=== PATIENT | female | born 1945 | race Caucasian/White ===

== ENCOUNTER 2020-01-16 12:54 | Outpatient (REF) | payer MEDICARE, SELFPAY ==
--- NOTE | 2020-01-17 17:01 | MHC.AU.P13 ---
Adult Audiological Evaluation Date of Visit: 01/16/20 Reason for Appointment: Hearing re-evaluation to monitor hearing loss. Patient denies any significant changes to her hearing or medical history. Does patient feel they have a hearing loss?: Yes If Yes, Which Ear?: Both Ears Has hearing been tested previously?: Yes Previous Hearing Test Results: [facility], 03/16/18- Normal low-frequency hearing, steeply sloping to a mild to severe SNHL bilaterally. Hearing Instrument History- Right Ear: Rn Intern: bVisual Model: FIT [employer]he[employer] M50-312 Serial Number: [id number] Battery Size: 312 Warranty: 08/14/2021 Hearing Instrument History- Left Ear: Rn Intern: bVisual Model: FIT [employer]he[employer]oda M50-312 Serial Number: [id number] Battery Size: 312 Warranty: 08/14/2021 Otoscopy: Right Ear: Unremarkable Left Ear: Unremarkable Tympanometry: Right Ear: Normal Middle Ear System (Type A) Left Ear: Normal Middle Ear System (Type A) Hearing Evaluation: Transducer(s) Used: Insert Earphones, Bone Conduction Method: Conventional Audiometry Stimuli Used: Pure Tones Right Ear: Description of Hearing: Mild hearing loss at 250 Hz, rising to normal hearing from 500-1000 Hz, steeply sloping to a mild to profound sensorineural hearing loss from 9521-8804 Hz. Left Ear: Description of Hearing: Mild hearing loss at 250 Hz, rising to normal hearing at 500 Hz, steeply sloping to a mild to severe sensorineural hearing loss from 6752-9917 Hz. Speech Recognition Threshold (SRT): Method Used: Monitored Live Voice Stimuli Used: Spondee Words Right Ear: 5 dBHL Left Ear: 5 dBHL Word Discrimination: Method: Recorded Lists Word Lists Used: NU-6 Right Ear: 76% at 70 dBHL Left Ear: 84% at 70 dBHL Most Comfortable Level (MCL): Right Ear: 70 dBHL Left Ear: 70 dBHL Comparison: Compared to the most recent evaluation: Thresholds have decreased bilaterally. Recommendations: Recommendations: Audiological re-evaluation in one year. Recommendations (Other): Hearing aid maintenance and adjustments performed today. Diagnosis: Primary Diagnosis: H90.3 Bilateral Sensorineural Hearing Loss Services Performed: Services Performed: Comprehensive Audiological Evaluation (CPT 93156) Tympanometry (CPT 35939) Signature: Provider: Manda Ceron, CCC-A
== END 2020-01-16 12:55 | disposition home or self-care (01) ==
LOC: HO.SH 12:54
PROVIDERS: Visit Provider Nurse Practitioner Family
DX: H90.3 Sensorineural hearing loss, bilateral (principal)
CPT/HCPCS: 92557; 92567

== ENCOUNTER 2020-01-23 11:28 | Outpatient (REF) | payer SELFPAY | END 2020-01-23 11:29 | disposition home or self-care (01) | LOC: HO.HAP 11:28 | PROVIDERS: PCP Nurse Practitioner Family; Referring Provider Nurse Practitioner Family; Visit Provider Nurse Practitioner Family | DX: Z13.89 Encounter for screening for other disorder (principal) | CPT/HCPCS: 92700 ==

== ENCOUNTER 2022-12-16 13:25 | Outpatient (REF) | payer MEDICARE, SELFPAY | END 2022-12-16 13:26 | disposition home or self-care (01) | LOC: HO.SH 13:25 | PROVIDERS: Visit Provider Physician Assistant | DX: Z01.118 Encounter for examination of ears and hearing with other abnormal findings (principal); H90.3 Sensorineural hearing loss, bilateral | CPT/HCPCS: 92557 ==

== ENCOUNTER 2024-10-16 09:01 | Day surgery (SDC) | payer MEDICARE, SELFPAY ==
--- OUTSIDE RECORDS SUMMARY | 2024-09-01 11:08 | XMS_ITS | Data Portability ---
Author Organization [facility], [facility] Address [address] [place] [address] Care Team Providers Care Food Tester Name Role Phone WAQAS KITCHEN Phys. Med. & Rehab YNES CAICEDO Orthopedic Surgeon ENDY HUA Hygiene Assistant VANE SPIVEY Machine Shop Apprentice IRENA OLMSTEAD Pump Machine Operator KOLTON PAREKH General Surgeon WAQAS WOLFE Neurologist LANDON CHAVEZ Primary Care Provider Assessment Encounter Date Assessment Date Assessment LastModified by Organization Details LastModified Time 09/09/2022 09/09/2022 We completed your Medicare Wellness exam today. This was an opportunity to assess your overall well being including your ability to care for yourself, your mobility, memory, mental health, as well as your safety. With advancing age, it is important to assign someone in your life as your Health Care Proxy (HCP). This person should know what is important to you and what your wishes are for medical procedures if you cannot communicate your wishes yourself (severe illness, unconsciousness) . We discussed having a completed Health Care Proxy form today. In addition, today we started a conversation about your End of Life wishes. These conversations will continue over the years. Please consider reading the book, Being Mortal by Cory Muniz to help frame future conversations. We discussed the purpose of a MOLST form (Medical Orders for Life Sustaining Treatment) and completed this form if appropriate per your wishes. Vision and Hearing are senses that are critically important as we age. When impaired, they can contribute to memory loss, falls, and make it harder to drive, talk to family and friends, and engage in the world. Please get your vision checked yearly and your hearing checked when you start to notice hearing loss. We discussed approaches to lowering your risk of heart disease and stroke . Your blood pressure is at goal. Your cholesterol is at goal. We discussed cancer screening you may need as well as vaccines to prevent infections. Colon Cancer : Your risk of colon cancer is average. Due for colorectal screening:not needed due to age. If you are not planning to have a colonoscopy please screen with stool cards yearly. Breast Cancer : Breast Cancer Screening (mammography). Next mammogram due: 2022. Cervical Cancer Screening (pap test). Next pap due: not needed. Influenza Vaccine : Flu shot yearly. Tetanus Vaccine : Every 10 years. Due: 2025. The following vaccines are available from your pharmacy: Pneumonia Vaccine : PCV20: once after age 65. Shingles Vaccine : 2 shots after age 50. Covid Vaccine : Make sure you have received the most up to date covid vaccine. Your personal health goal for the year is: Aim for 30min brisk exercise most days - get your heart rate up! Can do outside walk or indoor video/youtube Heart healthy diet - lots of veggies, fruit, lean meats and fish. Stress management - meditate, find roque, get outside. [email or web address] Not available 09/09/2022 13:19:56 09/20/2023 09/20/2023 We completed your Medicare Wellness exam today. This was an opportunity to assess your overall well being including your ability to care for yourself, your mobility, memory, mental health, as well as your safety. Vision and Hearing are senses that are critically important as we age. When impaired, they can contribute to memory loss, falls, and make it harder to drive, talk to family and friends, and engage in the world. Please get your vision checked yearly and your hearing checked when you start to notice hearing loss. We discussed approaches to lowering your risk of heart disease and stroke . Your blood pressure is at goal. Your cholesterol is at goal. We discussed cancer screening you may need as well as vaccines to prevent infections. Colon Cancer : Your risk of colon cancer is average. Due for colorectal screening:not needed due to age. If you are not planning to have a colonoscopy please screen with stool cards yearly. Breast Cancer : Breast Cancer Screening (mammography). Next mammogram due: 2023. Cervical Cancer Screening (pap test). Next pap due: not needed. Influenza Vaccine : Flu shot yearly. Tetanus Vaccine : Every 10 years. Due: 2025. The following vaccines are available from your pharmacy: Pneumonia Vaccine : PCV20: once after age 65. Shingles Vaccine : 2 shots after age 50. Covid Vaccine : Make sure you have received the most up to date covid vaccine. Your personal health goal for the year is: [email or web address] Not available 09/20/2023 12:23:06 Plan of Treatment Reminders Order Date Submit Date Provider Last Modified By Organization Details Last Modified Time Details Appointments Wellness Visit 30 2024 11:30A Lazara CHAVEZ DNP Not available Not available Not available Lab vitamin B12, serum 2021 022 [facility], [address] [place] [address], [address], 09/08/2021 16:31:39 TSH, serum or plasma 2021 [address] [facility], [address] [place] [address], [address], 09/04/2021 15:33:08 CBC 2021 022 [facility], [address] [place] [address], [address], 09/04/2021 13:22:[address] referral - polyneuro guadalupe after Covid vaccine? 2020 021 [email or web address] Not available 10/17/2020 12:12:30 Procedures lower extremity nerve conductio n study (PROC) 2020 021 [email or web address] Not available 10/29/2020 15:25:23 Surgeries None recorded. Imaging None recorded. Medication Orders azelastin e 0.05 % eye drops 2023 024 [facility]acy #[id number], [address] [place], [address], 09/29/2023 09:48:11 cetirizin e 10 mg tablet 2023 024 [email or web address] [facility]/Pharmacy #[id number], [address] [place], [address], 09/29/2023 09:39:01 Patient TargetsNo targets recorded. Patient Instructions Encounter Date Encounter Id Patient Instructions Last Modified By Organization Details Last Modified Time 09/04/2021 [id number] advance directives: care instructions Not available 09/04/2021 09:46:33 preventing falls : care instructions Not available 09/04/2021 09:46:33 hearing loss: care instructions Not available 09/04/2021 09:46:33 well visit, over 65: care instructions Not available 09/04/2021 09:46:33 Aim for 30min brisk exercise most days - get your heart rate up! Can do outside walk or indoor video/youtube Heart healthy diet - lots of veggies, fruit, lean meats and fish. Stress management - meditate, find roque, get outside. Not available 09/04/2021 15:41:26 09/09/2022 [id number] advance directives: care instructions Not available 09/09/2022 13:20:33 preventing falls : care instructions Not available 09/09/2022 13:20:33 hearing loss: care instructions Not available 09/09/2022 13:20:33 well visit, over 65: care instructions Not available 09/09/2022 13:20:33 CCM: The provide r and patient discussed the Chronic Care Management program, including the services provided, and any fees associated with them. 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 Referring Physician: Remedios Osman, Family Medicine, Encounter Date: 10/17/2020 Results Created Date Observation Date Name Description Value Unit Range Abnormal Flag Note LastModifiedBy Organization Detail LastModifiedTime 10/11/19 21 10/10/2020 CBC WBC 6.86 K/? ? ?L 3.98-1 0.04 Not Available [address], [address], 10/10/2020 12:45:45 10/11/19 21 10/10/2020 CBC RBC 4.82 M/? ? ?L 3.93-5 .22 Not Available [address], [address], 10/10/2020 12:45:45 10/11/19 21 10/10/2020 CBC HGB 13.5 g/dL 11.2-1 5.7 Not Available [address], [address], 10/10/2020 12:45:45 10/11/19 21 10/10/2020 CBC HCT 41.5 % 34.1-4 4.9 Not Available [address], [address], 10/10/2020 12:45:45 10/11/19 21 10/10/2020 CBC MCV 86.1 fL 79.4-9 4.8 Not Available [address], [address], 10/10/2020 12:45:45 10/11/19 21 10/10/2020 CBC MCH 28.0 pg 25.6-3 2.2 Not Available [address], [address], 10/10/2020 12:45:45 10/11/19 21 10/10/2020 CBC MCHC 32.5 g/dL 32.2-3 5.5 Not Available [address], [address], 10/10/2020 12:45:45 10/11/19 21 10/10/2020 CBC plt 286 K/? ? ?L 182-36 9 Not Available [address] [place], [address], 10/10/2020 12:45:45 10/11/19 21 10/10/2020 CBC MPV 9.6 fL 9.4-12 .3 Not Available [address], [address], 10/10/2020 12:45:45 10/11/19 21 10/10/2020 CBC neut% 57.5 % 34.0-7 1.1 Not Available [address], [address], 10/10/2020 12:45:45 10/11/19 21 10/10/2020 CBC neut# 3.95 1.56-6 .13 Not Available [address], [address], 10/10/2020 12:45:45 10/11/19 21 10/10/2020 CBC lymph % 26.4 % 19.3-5 1.7 Not Available [address], [address], 10/10/2020 12:45:45 10/11/1910/10/2020 CBC lymph # 1.81 K/? ? ?L 1.18-3 .74 Not Available [address], [address], 10/10/2020 12:45:45 10/11/19 21 10/10/2020 CBC mono% 12.0 % 4.7-12 .5 Not Available [address], [address], 10/10/2020 12:45:45 10/11/1910/10/2020 CBC mono# 0.82 0.24-0 .56 high Not Available [address], [address], 10/10/2020 12:45:45 10/11/19 21 10/10/2020 CBC eo% 2.9 % 0.7-5. 8 Not Available [address], [address], 10/10/2020 12:45:45 10/11/19 21 10/10/2020 CBC eo# 0.20 0.04-0 .36 Not Available [address], [address], 10/10/2020 12:45:45 10/11/19 21 10/10/2020 CBC baso% 0.9 % 0.1-1. 2 Not Available [address], [address], 10/10/2020 12:45:45 10/11/19 21 10/10/2020 CBC baso# 0.06 0.00-0 .08 Not Available [address], [address], 10/10/2020 12:45:45 10/11/19 21 10/10/2020 CBC RDW-CV 12.9 % 11.7-1 4.4 Not Available [address], [address], 10/10/2020 12:45:45 10/11/19 21 10/10/2020 CBC Ig% 0.300 % 0.000- 1.500 Ig % >0.5 Indic ates possi ble Left Shift Not Available [address], [address], 10/10/2020 12:45:45 10/11/19 21 10/10/2020 CBC Ig# 0.020 0.000- 0.093 Not Available [address], [address], 10/10/2020 12:45:45 10/11/19 21 10/10/2020 CBC NRBC% 0.0 % 0.0-0. 2 Not Available [address], [address], 10/10/2020 12:45:45 10/11/19 21 10/10/2020 CBC NRBC# 0.000 0.000- 0.012 Not Available [address], [address], 10/10/2020 12:45:45 10/11/19 21 10/10/2020 HGB A1C hemoglobin A1C 5.6 % 4.8-6. 0 Goal: <7% in Patie nts with Diabe jeffery An A1c betwe en 5.7-6 .4% is ident ified as pre-d iabet es and sugge sts risk for progr essio n to diabe jeffery Two a1c value s of 6.5% or highe r is consi stent with a diagn osis of diabe jeffery but may need furth er confi rmati on Not Available [address], [address], 10/10/2020 14:04:23 10/11/19 21 10/10/2020 HGB A1C estimated average glucose 114.0 mg/dL Not Available [address], [address], 10/10/2020 14:04:23 10/11/19 21 10/10/2020 COMP. METAB OLIC PANEL glucose 88 mg/dL 70-100 Not Available [address], [address], 10/10/2020 16:13:51 10/11/19 21 10/10/2020 COMP. METAB OLIC PANEL BUN 11 mg/dL 7-18 Not Available [address], [address], 10/10/2020 16:13:51 10/11/19 21 10/10/2020 COMP. METAB OLIC PANEL creatinine 0.7 mg/dL 0.8-1. 3 low Not Available [address], [address], 10/10/2020 16:13:51 10/11/19 21 10/10/2020 COMP. METAB OLIC PANEL B/C 15.7 ratio Not Available [address], [address], 10/10/2020 16:13:51 10/11/19 21 10/10/2020 COMP. METAB OLIC PANEL GFR -non 90.9 mL/mi n Recom helene d GFR by the Natio nal Kidne y Found ation >60 mL/mi n/1.7 3m2 - Loan l <60 mL/mi n/1.7 3m2 - Chron ic Kidne y Disea se <15 mL/mi n/1.7 3m2 - Kidne y Failu re Not Available [address], [address], 10/10/2020 16:13:51 10/11/19 21 10/10/2020 COMP. METAB OLIC PANEL GFR - if 104.5 mL/mi n For Afric an Ameri can patie nts: Resul ts Multi plied by 1.21 Not Available [address], [address], 10/10/2020 16:13:51 10/11/19 21 10/10/2020 COMP. METAB OLIC PANEL sodium 137 mmol/ L 136-14 5 Not Available [address], [address], 10/10/2020 16:13:51 10/11/19 21 10/10/2020 COMP. METAB OLIC PANEL potassium 4.3 mmol/ L 3.5-5. 1 Not Available [address], [address], 10/10/2020 16:13:51 10/11/19 21 10/10/2020 COMP. METAB OLIC PANEL chloride 99 mmol/ L 96-107 Not Available [address], [address], 10/10/2020 16:13:51 10/11/19 21 10/10/2020 COMP. METAB OLIC PANEL anion gap 9.9 5.0-15 .0 Not Available [address], [address], 10/10/2020 16:13:51 10/11/19 21 10/10/2020 COMP. METAB OLIC PANEL CO2 28 mmol/ L 21-32 Not Available [address], [address], 10/10/2020 16:13:51 10/11/19 21 10/10/2020 COMP. METAB OLIC PANEL calcium 9.4 mg/dL 8.5-10 .3 Not Available [address], [address], 10/10/2020 16:13:51 10/11/19 21 10/10/2020 COMP. METAB OLIC PANEL total protein 7.1 g/dL 6.4-8. 2 Not Available [address], [address], 10/10/2020 16:13:51 10/11/19 21 10/10/2020 COMP. METAB OLIC PANEL albumin 3.8 g/dL 3.4-5. 0 Not Available [address], [address], 10/10/2020 16:13:51 10/11/19 21 10/10/2020 COMP. METAB OLIC PANEL globulin 3.3 g/dL Not Available [address], [address], 10/10/2020 16:13:51 10/11/19 21 10/10/2020 COMP. METAB OLIC PANEL A/G 1.2 ratio 0.8-2. 0 Not Available [address], [address], 10/10/2020 16:13:51 10/11/19 21 10/10/2020 COMP. METAB OLIC PANEL total bilirubin 0.70 mg/dL 0.00-1 .00 Not Available [address], [address], 10/10/2020 16:13:51 10/11/19 21 10/10/2020 COMP. METAB OLIC PANEL AST 19 U/L 0-37 Not Available [address], [address], 10/10/2020 16:13:51 10/11/19 21 10/10/2020 COMP. METAB OLIC PANEL ALT 19 U/L 6-63 Not Available [address], [address], 10/10/2020 16:13:51 10/11/19 21 10/10/2020 COMP. METAB OLIC PANEL alk. phos. 64 U/L 50-136 Not Available [address], [address], 10/10/2020 16:13:51 10/11/19 21 10/11/2020 TSH TSH 3.48 uIU/m L 0.50-6 .00 The Ameri can Colle ge of Endoc rinol ogy and Ameri can Thyro id Assoc iatio n recom mend goal TSH value s betwe en 0.4-4 .0 mIU/m L. Not Available [address], [address], 10/11/2020 10:55:37 10/11/19 21 10/11/2020 MCKINLEY TIN ferritin 76 NG/mL 15-200 Not Available [address], [address], 10/11/2020 10:55:38 10/11/19 21 10/14/2020 PROTE IN, TOTAL AND PROTE IN ELECT CHELSEA PALACIOS URINE creatinine, random urine 53 mg/dL 20-275 normal Not Available [facility] [address], [place], [address], 10/14/2020 11:16:23 10/11/19 21 10/14/2020 PROTE IN, TOTAL AND PROTE IN CHELSEA WHEELER URINE protein/crea tinine ratio 113 mg/g_ creat 21-161 normal Not Available [facility] [place] [facility] [address], [address], 10/14/2020 11:16:23 10/11/19 21 10/14/2020 PROTE IN, TOTAL AND PROTE IN CHELSEA WHEELER URINE protein/crea tinine ratio 0.113 mg/mg _crea t 0.021- 0.161 normal Not Available [facility] [place] [facility] [address], [address], 10/14/2020 11:16:23 10/11/19 21 10/14/2020 PROTE IN, TOTAL AND PROTE IN CHELSEA WHEELER URINE protein, total, random ur 6 mg/dL 5-24 normal Not Available [facility] [place] [facility] [address], [address], 10/14/2020 11:16:23 10/11/19 21 10/14/2020 PROTE IN, TOTAL AND PROTE IN CHELSEA WHEELER URINE albumin 100 % Not Available [facility] [place] [facility] [address], [address], 10/14/2020 11:16:23 10/11/19 21 10/14/2020 PROTE IN, TOTAL AND PROTE IN [facility] CHELSEA PALACIOS URINE [id number] ulins 0 % Not Available [facility] [place] [facility] [address], [address], 10/14/2020 11:16:23 10/11/19 21 10/14/2020 PROTE IN, TOTAL AND PROTE IN CHELSEA WHEELER URINE [id number] ulins 0 % Not Available [facility] [place] [facility] [address], [address], 10/14/2020 11:16:23 10/11/19 21 10/14/2020 PROTE IN, TOTAL AND PROTE IN ELECT CHELSEA PALACIOS URINE beta globulins 0 % Not Available [facility] [place] [facility] [address] [place], [place], [address], 10/14/2020 11:16:23 10/11/19 21 10/14/2020 PROTE IN, TOTAL AND PROTE IN ELECT [facility] CHELSEA JEAN BAPTISTE URINE gamma globulins 0 % Not Available [facility] [place] [facility] [address] [place], [address], 10/14/2020 11:16:23 10/11/19 21 10/14/2020 PROTE IN, TOTAL AND PROTE IN [facility] CHELSEA JEAN BAPTISTE URINE interpretati on Loan Collado rn Not Available [facility] [place] [facility] [address], [place], [address], 10/14/2020 11:16:23 10/11/19 21 10/16/2020 VITAM IN B12 vitamin B12 251 pg/mL 230-10 50 Not Available [address], [address], 10/16/2020 13:42:10 10/11/19 21 10/17/2020 HEPAT ITIS C AB W/REF L TO HCV RNA, QN, PCR hepatitis C antibody REACTI VE non-re active abnormal Not Available [facility] [place] [facility] [address], [place], [address], 10/17/2020 14:57:29 10/11/19 21 10/17/2020 HEPAT ITIS C AB W/REF L TO HCV RNA, QN, PCR index 24.10 <1.00 high Based on this resul t, the sampl e will be teste d for HCV RNA by a Nucle ic Acid Ampli ficat ion Test (NAAT ) to deter mine if the patie nt has a curre nt activ e infec tion. Not Available [facility] [place] [facility] [address], [address], 10/17/2020 14:57:29 10/11/19 21 10/17/2020 HEPAT ITIS C AB W/REF L TO HCV RNA, QN, PCR HCV RNA, quantitative real time PCR 647304 IU/mL not detect ed high Not Available [facility] [place] [facility] [address], [place], [address], 10/17/2020 14:57:29 10/11/1910/17/2020 HEPAT ITIS C AB W/REF L TO HCV RNA, QN, PCR HCV RNA, quantitative real time PCR 5.67 log_I U/mL not detect ed high HCV RNA was detec david. This resul t provi aurora labor atory evide nce of a curre nt activ e HCV infec tion. Not Available [facility] [place] [facility] [address], [address], 10/17/2020 14:57:29 10/11/1910/17/2020 HEPAT ITIS C AB W/REF L TO HCV RNA, QN, PCR Unknown Analyte This test was perfo rmed using Real- Time Polym erase Chain React ion. Repor table Range : 15 IU/mL to 100,0 00,00 0 IU/mL (1.18 Log IU/mL to 8.00 Log IU/mL ). The wen tical perfo rmanc e tona cteri stics of this assay have been deter mined by [facility]. The modif icati ons have not been clear ed or appro omaira by the FDA. This assay has been valid ated pursu ant to the CLIA regul ation s and is used for clini randolph purpo ses. For more infor ronald horvath on this test, go to: http: //lynn braswell stdia gnost ics.c om/fa q/FAQ 22v1 (This link is being provi ded for infor matazeb nal/ educa lisha l purpo ses only. ) This assay is inten ded for use as an aid in the diagn osis of HCV infec tion and the manag ement of HCV infec david patie nts under going anti- viral thera py. Not Available [facility] [place] [facility] [address], [place], [address], 10/17/2020 14:57:29 10/11/19 21 10/17/2020 HEPAT ITIS B SURFA CE ANTIG EN W/REF L CONFI RM hepatitis B surface antigen NON-RE ACTIVE non-re active normal Not Available [facility] [place] [facility] [address], [place], [address], 10/17/2020 14:57:30 10/11/19 21 10/17/2020 IMMUN OFIXA TION, SERUM mabel interpretati on Loan collado rn. No monoc lonal prote ins detec david. Not Available [facility] [place] [facility] [address], [place], [address], 10/17/2020 14:57:31 10/11/19 21 10/17/2020 PROTE IN, TOTAL AND PROTE IN ELECT ROP RESIS protein, total 6.7 g/dL 6.1-8. 1 normal Not Available [facility] [place] [facility] [address], [place], [address], 10/17/2020 14:57:32 10/11/19 21 10/17/2020 PROTE IN, TOTAL AND PROTE IN ELECT ROPHO RESIS albumin 3.9 g/dL 3.8-4. 8 normal Not Available [facility] [place] [facility] [address], [place], [address], 10/17/2020 14:57:32 10/11/19 21 10/17/2020 PROTE IN, TOTAL AND PROTE IN ELECT ROPHO RESIS alpha 1 globulin 0.3 g/dL 0.2-0. 3 normal Not Available [facility] [address], [place], [address], 10/17/2020 14:57:32 10/11/19 21 10/17/2020 PROTE IN, TOTAL AND PROTE IN ELECT ROPHO RESIS alpha 2 globulin 0.8 g/dL 0.5-0. 9 normal Not Available [facility] [place] [facility] [address], [place], [address], 10/17/2020 14:57:32 10/11/1910/17/2020 PROTE IN, TOTAL AND PROTE IN ELECT ROPHO RESIS beta 1 globulin 0.4 g/dL 0.4-0. 6 normal Not Available [facility] [address], [place], [address], 10/17/2020 14:57:32 10/11/19 21 10/17/2020 PROTE IN, TOTAL AND PROTE IN ELECT ROPHO RESIS beta 2 globulin 0.3 g/dL 0.2-0. 5 normal Not Available [facility] [place] [facility] [address], [place], [address], 10/17/2020 14:57:32 10/11/1910/17/2020 PROTE IN, TOTAL AND PROTE IN ELECT ROPHO RESIS gamma globulin 1.0 g/dL 0.8-1. 7 normal Not Available [facility] [address], [place], [address], 10/17/2020 14:57:32 10/11/1910/17/2020 PROTE IN, TOTAL AND PROTE IN ELECT ROPHO RESIS interpretati on Loan l Elect ropho retic Patte rn Not Available [facility] [address], [place], [address], 10/17/2020 14:57:32 10/24/19 21 10/23/2020 CBC AND DIFFE RENTI AL WBC 9.08 K/uL 4.00-1 1.00 Not Available [facility] [address] [place], [address], 10/23/2020 18:24:36 10/24/19 21 10/23/2020 CBC AND DIFFE RENTI AL RBC 4.71 M/uL 3.72-5 .30 Not Available [facility] [address] [place], [address], 10/23/2020 18:24:36 10/24/19 21 10/23/2020 CBC AND DIFFE RENTI AL HGB 13.6 g/dL 11.4-1 5.9 Not Available [facility] ([facility] [address] [place], [address], 10/23/2020 18:24:36 10/24/19 21 10/23/2020 CBC AND DIFFE RENTI AL HCT 41.3 % 34.2-4 6.8 Not Available [facility] [address] [place], [address], 10/23/2020 18:24:36 10/24/19 21 10/23/2020 CBC AND DIFFE RENTI AL plt 301 K/uL 140-43 0 Not Available [facility] [address] [place], [address], 10/23/2020 18:24:36 10/24/19 21 10/23/2020 CBC AND DIFFE RENTI AL MCV 87.7 fL 78.0-9 7.0 Not Available [facility] [address] [place], [address], 10/23/2020 18:24:36 10/24/19 21 10/23/2020 CBC AND DIFFE RENTI AL MCH 28.9 pg 25.0-3 3.0 Not Available [facility] [address] [place], [address], 10/23/2020 18:24:36 10/24/19 21 10/23/2020 CBC AND DIFFE RENTI AL MCHC 32.9 g/dL 32.0-3 6.0 Not Available [facility] [address] [place], [address], 10/23/2020 18:24:36 10/24/19 21 10/23/2020 CBC AND DIFFE RENTI AL RDW 13.1 % 11.0-1 6.0 Not Available [facility] [address] [place], [address], 10/23/2020 18:24:36 10/24/19 21 10/23/2020 CBC AND DIFFE RENTI AL MPV 9.3 fL 8.4-12 .8 Not Available [facility] [address] [place], [address], 10/23/2020 18:24:36 10/24/19 21 10/23/2020 CBC AND DIFFE RENTI AL NRBC 0.00 /100_ WBCs 0 Not Available [facility] [address] [place], [address], 10/23/2020 18:24:36 10/24/19 21 10/23/2020 CBC AND DIFFE RENTI AL absolute NRBC 0.00 K/uL 0 Not Available [facility] [address] [place], [address], 10/23/2020 18:24:36 10/24/19 21 10/23/2020 CBC AND DIFFE RENTI AL diff method Auto Not Available [facility] [address] [place], [address], 10/23/2020 18:24:36 10/24/19 21 10/23/2020 CBC AND DIFFE RENTI AL neuts 56.7 % 43.0-7 5.0 Not Available [facility] ([facility]) [address] [place] [address], [address], 10/23/2020 18:24:36 10/24/19 21 10/23/2020 CBC AND DIFFE RENTI AL lymphs 27.9 % 18.2-4 7.4 Not Available [facility] ([facility]) [address] [place], [address], 10/23/2020 18:24:36 10/24/19 21 10/23/2020 CBC AND DIFFE RENTI AL monos 11.0 % 4.00-1 1.00 Not Available [facility] ([facility]) [address] [place] [address], [address], 10/23/2020 18:24:36 10/24/19 21 10/23/2020 CBC AND DIFFE RENTI AL eos 3.4 % 0.0-8. 0 Not Available [facility] ([facility]) [address] [place] [address], [address], 10/23/2020 18:24:36 10/24/19 21 10/23/2020 CBC AND DIFFE RENTI AL basos 0.8 % 0.0-2. 0 Not Available [facility] (Outpatient) [address] [place] [address], [address], 10/23/2020 18:24:36 10/24/19 21 10/23/2020 CBC AND DIFFE RENTI AL granulocytes , immature (%) 0.2 % 0.0-0. 9 Not Available [facility] (Outpatient) [address] [place] [address], [address], 10/23/2020 18:24:36 10/24/19 21 10/23/2020 CBC AND DIFFE RENTI AL absolute neuts 5.15 K/uL 1.80-7 .70 Not Available [facility] (Outpatient) [address] [place], [address], 10/23/2020 18:24:36 10/24/19 21 10/23/2020 CBC AND DIFFE RENTI AL absolute lymphs 2.53 K/uL 1.00-3 .10 Not Available [facility] (Outpatient) [address] [place], [address], 10/23/2020 18:24:36 10/24/19 21 10/23/2020 CBC AND DIFFE RENTI AL absolute monos 1.00 K/uL 0.20-0 .80 high Not Available [facility] (Outpatient) [address] [place], [address], 10/23/2020 18:24:36 10/24/19 21 10/23/2020 CBC AND DIFFE RENTI AL absolute eos 0.31 K/uL 0.00-0 .80 Not Available [facility] (Outpatient) [address] [place], [address], 10/23/2020 18:24:36 10/24/19 21 10/23/2020 CBC AND DIFFE RENTI AL absolute basos 0.07 K/uL 0.00-0 .09 Not Available [facility] (Outpatient) [address] [place], [address], 10/23/2020 18:24:36 10/24/19 21 10/23/2020 CBC AND DIFFE RENTI AL granulocytes , immature 0.02 K/uL 0.00-0 .05 Not Available [facility] (Outpatient) [address] [place], [address], 10/23/2020 18:24:36 10/24/19 21 10/23/2020 COMPR EHENS DWAYNE METAB OLIC PANEL sodium 136 mmol/ L 133-14 6 Not Available [facility] (Outpatient) [address] [place], [address], 10/23/2020 18:44:56 10/24/19 21 10/23/2020 COMPR EHENS DWAYNE METAB OLIC PANEL potassium 4.3 mmol/ L 3.3-5. 1 Not Available [facility] (Outpatient) [address] [place], [address], 10/23/2020 18:44:56 10/24/19 21 10/23/2020 COMPR EHENS DWAYNE METAB OLIC PANEL chloride 100 mmol/ L 96-108 Not Available [facility] (Outpatient) [address] [place], [address], 10/23/2020 18:44:56 10/24/19 21 10/23/2020 COMPR EHENS DWAYNE METAB OLIC PANEL CO2 26 mmol/ L 21-35 Not Available [facility] (Outpatient) [address] [place], [address], 10/23/2020 18:44:56 10/24/19 21 10/23/2020 COMPR EHENS DWAYNE METAB OLIC PANEL BUN 10 mg/dL 6-19 Not Available [facility] (Outpatient) [address] [place], [address], 10/23/2020 18:44:56 10/24/19 21 10/23/2020 COMPR EHENS DWAYNE METAB OLIC PANEL creatinine 0.60 mg/dL 0.5-1. 5 Not Available [facility] (Outpatient) [address] [place], [address], 10/23/2020 18:44:56 10/24/19 21 10/23/2020 COMPR EHENS DWAYNE METAB OLIC PANEL glucose 88 mg/dL 70-99 Not Available [facility] (Outpatient) [address] [place], [address], 10/23/2020 18:44:56 10/24/19 21 10/23/2020 COMPR EHENS DWAYNE METAB OLIC PANEL albumin 4.0 g/dL 3.9-4. 8 Not Available [facility] (Outpatient) [address] [place], [address], 10/23/2020 18:44:56 10/24/19 21 10/23/2020 COMPR EHENS DWAYNE METAB OLIC PANEL total protein 7.2 g/dL 6.5-8. 0 Not Available [facility] (Outpatient) [address] [place], [address], 10/23/2020 18:44:56 10/24/19 21 10/23/2020 COMPR EHENS DWAYNE METAB OLIC PANEL calcium 9.9 mg/dL 8.4-10 .3 Not Available [facility] (Outpatient) [address] [place], [address], 10/23/2020 18:44:56 10/24/19 21 10/23/2020 COMPR EHENS DWAYNE METAB OLIC PANEL alkaline phosphatase 66 U/L 39-117 Not Available [facility] (Outpatient) [address] [place], [address], 10/23/2020 18:44:56 10/24/19 21 10/23/2020 COMPR EHENS DWAYNE METAB OLIC PANEL total bilirubin 0.3 mg/dL 0.0-1. 2 Not Available [facility] (Outpatient) [address] [place], [address], 10/23/2020 18:44:56 10/24/19 21 10/23/2020 COMPR EHENS DWAYNE METAB OLIC PANEL AST 27 U/L 0-37 Not Available [facility] (Outpatient) [address] [place], [address], 10/23/2020 18:44:56 10/24/19 21 10/23/2020 COMPR EHENS DWAYNE METAB OLIC PANEL ALT 12 U/L 0-40 Not Available [facility] (Outpatient) [address] [place], [address], 10/23/2020 18:44:56 10/24/19 21 10/23/2020 COMPR EHENS DWAYNE METAB OLIC PANEL globulin 3.2 g/dL 1-4.8 Not Available [facility] (Outpatient) [address] [place], [address], 10/23/2020 18:44:56 10/24/19 21 10/23/2020 COMPR EHENS DWAYNE METAB OLIC PANEL eGFR 88 mL/mi n/1.7 3m2 >59 Estim ated glome rular filtr ation rate calcu lated using the CKD-E PI equat ion. Not Available [facility] (Outpatient) [address] [place] [address], [address], 10/23/2020 18:44:56 10/24/19 21 10/23/2020 COMPR EHENS DWAYNE METAB OLIC PANEL anion gap 14 mmol/ L 10-20 Not Available [facility] (Outpatient) [address] [place], [address], 10/23/2020 18:44:56 10/24/19 21 10/23/2020 HEPAT ITIS B SURFA CE ANTIG EN HBV surface antigen NON-RE ACTIVE non-re active Not Available [facility] (Outpatient) [address] [place] [address], [address], 10/23/2020 18:57:17 10/24/19 21 10/23/2020 HEPAT ITIS B CORE ANTIB JAILYN, TOTAL hep B core Ab, tot REACTI VE non-re active abnormal Not Available [facility] (Outpatient) [address] [place], [address], 10/23/2020 18:57:19 10/24/19 21 10/23/2020 HEPAT ITIS B SURFA CE ANTIB JAILYN HBV surface antibody Positi ve Unvac cinat ed: Negat dwayne Vacci nated : Posit dwayne Not Available [facility] (Outpatient) [address] [place], [address], 10/23/2020 18:57:19 10/24/19 21 10/25/2020 HEPAT ITIS C VIRAL LOAD (PCR) HCV RNA detect/qnt [id number] IU/mL undete cted abnormal Not Available [facility] (Outpatient) [address] [place], [address], 10/25/2020 22:32:33 10/24/19 21 10/28/2020 HEPAT ITIS C GENOT YPING HCV genotype 1b undete cted abnormal Not Available [facility] (Outpatient) [address] [place], [address], 10/28/2020 23:23:32 11/03/19 21 11/05/2020 HEPAT ITIS B VIRAL LOAD (PCR) HBV DNA detect/qnt Undete cted IU/mL undete cted Not Available [facility] (Outpatient) [address] [place], [address], 11/05/2020 19:16:06 11/03/19 21 11/06/2020 LIVER FIBRO SIS TEST fibrosis score 0.57 Not Available [facility] (Outpatient) [address] [place], [address], 11/06/2020 18:45:57 11/03/19 21 11/06/2020 LIVER FIBRO SIS TEST fibrosis interp SEE NOTE (NOTE ) moder ate fibro sis Fibro Test Score (f) Metav ir Score f>=0 and f<=0. 21 : F0 (no fibro sis) f>0.2 1 and f<=0. 27 : F0-F1 (no fibro sis) f>0.2 7 and f<=0. 31 : F1 (mini mal fibro sis) f> 0.31 and f<=0. 48 : F1-F2 (mini mal fibro sis) f>0.4 8 and f<=0. 58 : F2 (mode rate fibro sis) f>0.5 8 and f<=0. 72 : F3 (adva nced fibro sis) f>0.7 2 and f<=0. 74 : F3-F4 (adva nced fibro sis) f>0.7 4 and f<=1. 00 : F4 (dalia re fibro sis) Not Available [facility] ([facility]) [address] [place] [address], [address], 11/06/2020 18:45:57 11/03/19 21 11/06/2020 LIVER FIBRO SIS TEST fibrosis stage F2 Not Available [facility] ([facility]patient) [address] [place] [address], [address], 11/06/2020 18:45:57 11/03/19 21 11/06/2020 LIVER FIBRO SIS TEST necroinflamm score 0.02 Not Available [facility] (Outpatient) [address] [place] [address], [address], 11/06/2020 18:45:57 11/03/1911/06/2020 LIVER FIBRO SIS TEST necroinflamm grade A0 Not Available [facility] (Outpatient) [address] [place] [address], [address], 11/06/2020 18:45:57 11/03/1911/06/2020 LIVER FIBRO SIS TEST necroinflamm interp SEE NOTE (NOTE ) no activ ity ActiT est Score (a) Metav ir Score a>=0 and a<=0. 17 : A0 (no activ ity) a>0.1 7 and a<=0. 29 : A0-A1 (no activ ity) a>0.2 9 and a<=0. 36 : A1 (mini mal activ ity) a>0.3 6 and a<=0. 52 : A1-A2 (mini mal activ ity) a>0.5 2 and a<=0. 60 : A2 (sign ifica nt activ ity) a>0.6 0 and a<=0. 62 : A2-A3 (sign ifica nt activ ity) a>0.6 2 and a<=1. 00 : A3 (dalia re activ ity) Not Available [facility] (Outpatient) [address] [place], [address], 11/06/2020 18:45:57 11/03/19 21 11/06/2020 LIVER FIBRO SIS TEST A2 macroglobuli n 402 mg/dL 106-27 9 high Not Available [facility] (Outpatient) [address] [place], [address], 11/06/2020 18:45:57 11/03/19 21 11/06/2020 LIVER FIBRO SIS TEST haptoglobin 95 mg/dL 43-212 Not Available [facility] (Outpatient) [address] [place], [address], 11/06/2020 18:45:57 11/03/19 21 11/06/2020 LIVER FIBRO SIS TEST apolopprotei n A1 193 mg/dL 101-19 8 Not Available [facility] (Outpatient) [address] [place] [address], [address], 11/06/2020 18:45:57 11/03/19 21 11/06/2020 LIVER FIBRO SIS TEST total bilirubin 0.6 mg/dL 0.2-1. 2 Not Available [facility] (Outpatient) [address] [place], [address], 11/06/2020 18:45:57 11/03/19 21 11/06/2020 LIVER FIBRO SIS TEST GGT 27 U/L 3-65 Not Available [facility] (Outpatient) [address] [place], [address], 11/06/2020 18:45:57 11/03/19 21 11/06/2020 LIVER FIBRO SIS TEST ALT 6 U/L 6-29 Not Available [facility] (Outpatient) [address] [place], [address], 11/06/2020 18:45:57 11/03/19 21 11/06/2020 LIVER FIBRO SIS TEST reference id [id number] Not Available [facility] (Outpatient) [address] [facility], [place], [address], 11/06/2020 18:45:57 11/03/19 21 11/06/2020 LIVER FIBRO SIS TEST footnote SEE NOTE (NOTE ) The relia bilit y of resul ts is depen dent on compl iance with the prean alyti randolph and wen tical condi tions recom helene d by [employer] dwayne. The tests have to be defer red for: acute hemol ysis, acute hepat itis, acute infla mmati on, extra hepat ic pb stasi s. The advic e of a speci alist shoul d be sough t for inter preta tion in chron ic hemol ysis and Gilbe rt's syndr ome. The test inter preta tion is not valid ated in liver trans plant patie nts. [place] extre me value s of one of the compo nents shoul d lead to cauti on in inter preti ng the resul ts. In case of disco rdanc e betwe en a biops y resul t and a test, it is recom helene d to seek the advic e of a speci alist . The cause s of these disco rdanc es could be due to a flaw of the test or to a flaw in the biops y: i.e. a liver biops y has a 33% varia bilit y rate for one fibro sis stage . Fibro Test is inter preta ble for chron ic hepat itis B and C, alcoh olic and non alcoh olic steat osis. ActiT est is inter preta ble for chron ic hepat itis B and C. The perfo rmanc e tona cteri stics have been deter mined by [facility] Lane isidro, Jostin baez . It has not been clear ed or appro omaira by the [place]. Food and Drug Admin istra tion. Perfo rmanc e tona cteri stics refer to the wen tical perfo rmanc e of the test. [facility] , [facility], the assoc iated logo, Lane isidro and all assoc iated [facility] cooley are the madhav tered trade cooley of [facility]. All third constitution party cooley - (R) and (TM) - are the prope rty of their respe ctive speedboat operator s. (C) 1999- 2013 [facility] Inc[employer] porat ed. All right s reser omaira. Not Available [facility] (Outpatient) [address] [place], [address], 11/06/2020 18:45:57 11/20/19 21 11/19/2020 HEPAT ITIS A ANTIB JAILYN, TOTAL HAV total Ab Reacti ve non-re active abnormal Not Available [facility] (Outpatient) [address] [place], [address], 11/19/2020 19:23:22 11/20/19 21 11/19/2020 HEPAT ITIS A ANTIB JAILYN, IGM hepatitis A antibody, IgM NON-RE ACTIVE non-re active Not Available [facility] (Outpatient) [address] [place], [address], 11/19/2020 20:02:25 11/20/19 21 11/20/2020 HIV-1 /2 ANTIG EN/AN TIBOD Y HIV 1/2 antibody screen NON-RE ACTIVE non-re active Not Available [facility] (Outpatient) [address] [place], [address], 11/20/2020 11:56:19 11/20/19 21 11/20/2020 HIV-1 /2 ANTIG EN/AN TIBOD Y HIV-1 antigen NON-RE ACTIVE non-re active Not Available [facility] (Outpatient) [address] [place], [address], 11/20/2020 11:56:19 12/05/19 21 12/04/2020 COMPR EHENS DWAYNE METAB OLIC PANEL sodium 136 mmol/ L 133-14 6 Not Available [facility] (Outpatient) [address] [place] [address], [address], 12/04/2020 17:20:23 12/05/19 21 12/04/2020 COMPR EHENS DWAYNE METAB OLIC PANEL potassium 4.0 mmol/ L 3.3-5. 1 Not Available [facility] (Outpatient) [address] [place], [address], 12/04/2020 17:20:23 12/05/19 21 12/04/2020 COMPR EHENS DWAYNE METAB OLIC PANEL chloride 100 mmol/ L 96-108 Not Available [facility] (Outpatient) [address] [place], [address], 12/04/2020 17:20:23 12/05/19 21 12/04/2020 COMPR EHENS DWAYNE METAB OLIC PANEL CO2 26 mmol/ L 21-35 Not Available [facility] (Outpatient) [address] [place], [address], 12/04/2020 17:20:23 12/05/19 21 12/04/2020 COMPR EHENS DWAYNE METAB OLIC PANEL BUN 12 mg/dL 6-19 Not Available [facility] (Outpatient) [address] [place], [address], 12/04/2020 17:20:23 12/05/19 21 12/04/2020 COMPR EHENS DWAYNE METAB OLIC PANEL creatinine 0.70 mg/dL 0.5-1. 5 Not Available [facility] (Outpatient) [address] [place], [address], 12/04/2020 17:20:23 12/05/19 21 12/04/2020 COMPR EHENS DWAYNE METAB OLIC PANEL glucose 81 mg/dL 70-99 Not Available [facility] (Outpatient) [address] [place], [address], 12/04/2020 17:20:23 12/05/19 21 12/04/2020 COMPR EHENS DWAYNE METAB OLIC PANEL albumin 4.4 g/dL 3.9-4. 8 Not Available [facility] (Outpatient) [address] [place], [address], 12/04/2020 17:20:23 12/05/19 21 12/04/2020 COMPR EHENS DWAYNE METAB OLIC PANEL total protein 7.7 g/dL 6.5-8. 0 Not Available [facility] (Outpatient) [address] [place], [address], 12/04/2020 17:20:23 12/05/19 21 12/04/2020 COMPR EHENS DWAYNE METAB OLIC PANEL calcium 10.6 mg/dL 8.4-10 .3 high Not Available [facility] (Outpatient) [address] [place], [address], 12/04/2020 17:20:23 12/05/19 21 12/04/2020 COMPR EHENS DWAYNE METAB OLIC PANEL alkaline phosphatase 70 U/L 39-117 Not Available [facility] (Outpatient) [address] [place], [address], 12/04/2020 17:20:23 12/05/19 21 12/04/2020 COMPR EHENS DWAYNE METAB OLIC PANEL total bilirubin 0.6 mg/dL 0.0-1. 2 Not Available [facility] (Outpatient) [address] [place], [address], 12/04/2020 17:20:23 12/05/19 21 12/04/2020 COMPR EHENS DWAYNE METAB OLIC PANEL AST 16 U/L 0-37 Not Available [facility] (Outpatient) [address] [place], [address], 12/04/2020 17:20:23 12/05/19 21 12/04/2020 COMPR EHENS DWAYNE METAB OLIC PANEL ALT <5 U/L 0-40 Not Available [facility] (Outpatient) [address] [place], [address], 12/04/2020 17:20:23 12/05/19 21 12/04/2020 COMPR EHENS DWAYNE METAB OLIC PANEL globulin 3.3 g/dL 1-4.8 Not Available [facility] (Outpatient) [address] [place], [address], 12/04/2020 17:20:23 12/05/19 21 12/04/2020 COMPR EHENS DWAYNE METAB OLIC PANEL eGFR 84 mL/mi n/1.7 3m2 >59 Estim ated glome rular filtr ation rate calcu lated using the CKD-E PI equat ion. Not Available [facility] (Outpatient) [address] [place], [address], 12/04/2020 17:20:23 12/05/19 21 12/04/2020 COMPR EHENS DWAYNE METAB OLIC PANEL anion gap 14 mmol/ L 10-20 Not Available [facility] (Outpatient) [address] [place], [address], 12/04/2020 17:20:23 12/19/19 21 12/18/2020 COMPR EHENS DWAYNE METAB OLIC PANEL sodium 137 mmol/ L 133-14 6 Not Available [facility] (Outpatient) [address] [place], [address], 12/18/2020 14:18:39 12/19/19 21 12/18/2020 COMPR EHENS DWAYNE METAB OLIC PANEL potassium 4.0 mmol/ L 3.3-5. 1 Not Available [facility] (Outpatient) [address] [place], [address], 12/18/2020 14:18:39 12/19/19 21 12/18/2020 COMPR EHENS DWAYNE METAB OLIC PANEL chloride 100 mmol/ L 96-108 Not Available [facility] (Outpatient) [address] [place], [address], 12/18/2020 14:18:39 12/19/19 21 12/18/2020 COMPR EHENS DWAYNE METAB OLIC PANEL CO2 28 mmol/ L 21-35 Not Available [facility] (Outpatient) [address] [place], [address], 12/18/2020 14:18:39 12/19/19 21 12/18/2020 COMPR EHENS DWAYNE METAB OLIC PANEL BUN 12 mg/dL 6-19 Not Available [facility] (Outpatient) [address] [place], [address], 12/18/2020 14:18:39 12/19/19 21 12/18/2020 COMPR EHENS DWAYNE METAB OLIC PANEL creatinine 0.60 mg/dL 0.5-1. 5 Not Available [facility] (Outpatient) [address] [place], [address], 12/18/2020 14:18:39 12/19/19 21 12/18/2020 COMPR EHENS DWAYNE METAB OLIC PANEL glucose 79 mg/dL 70-99 Not Available [facility] (Outpatient) [address] [place], [address], 12/18/2020 14:18:39 12/19/19 21 12/18/2020 COMPR EHENS DWAYNE METAB OLIC PANEL albumin 4.6 g/dL 3.9-4. 8 Not Available [facility] (Outpatient) [address] [place], [address], 12/18/2020 14:18:39 12/19/19 21 12/18/2020 COMPR EHENS DWAYNE METAB OLIC PANEL total protein 7.6 g/dL 6.5-8. 0 Not Available [facility] (Outpatient) [address] [place] [address], [address], 12/18/2020 14:18:39 12/19/19 21 12/18/2020 COMPR EHENS DWAYNE METAB OLIC PANEL calcium 10.0 mg/dL 8.4-10 .3 Not Available [facility] (Outpatient) [address] [place], [address], 12/18/2020 14:18:39 12/19/19 21 12/18/2020 COMPR EHENS DWAYNE METAB OLIC PANEL alkaline phosphatase 73 U/L 39-117 Not Available [facility] (Outpatient) [address] [place], [address], 12/18/2020 14:18:39 12/19/19 21 12/18/2020 COMPR EHENS DWAYNE METAB OLIC PANEL total bilirubin 0.6 mg/dL 0.0-1. 2 Not Available [facility] (Outpatient) [address] [place], [address], 12/18/2020 14:18:39 12/19/19 21 12/18/2020 COMPR EHENS DWAYNE METAB OLIC PANEL AST 14 U/L 0-37 Not Available [facility] (Outpatient) [address] [place], [address], 12/18/2020 14:18:39 12/19/19 21 12/18/2020 COMPR EHENS DWAYNE METAB OLIC PANEL ALT 6 U/L 0-40 Not Available [facility] (Outpatient) [address] [place], [address], 12/18/2020 14:18:39 12/19/19 21 12/18/2020 COMPR EHENS DWAYNE METAB OLIC PANEL globulin 3.0 g/dL 1-4.8 Not Available [facility] (Outpatient) [address] [place], [address], 12/18/2020 14:18:39 12/19/19 21 12/18/2020 COMPR EHENS DWAYNE METAB OLIC PANEL eGFR 88 mL/mi n/1.7 3m2 >59 Estim ated glome rular filtr ation rate calcu lated using the CKD-E PI equat ion. Not Available [facility] (Outpatient) [address] [place], [address], 12/18/2020 14:18:39 12/19/19 21 12/18/2020 COMPR EHENS DWAYNE METAB OLIC PANEL anion gap 13 mmol/ L 10-20 Not Available [facility] (Outpatient) [address] [place], [address], 12/18/2020 14:18:39 01/03/20 21 01/02/2021 COMPR EHENS DWAYNE METAB OLIC PANEL sodium 136 mmol/ L 133-14 6 Not Available [facility] (Outpatient) [address] [place], [address], 01/02/2021 12:57:25 01/03/20 21 01/02/2021 COMPR EHENS DWAYNE METAB OLIC PANEL potassium 4.2 mmol/ L 3.3-5. 1 Not Available [facility] (Outpatient) [address] [place], [address], 01/02/2021 12:57:25 01/03/20 21 01/02/2021 COMPR EHENS DWAYNE METAB OLIC PANEL chloride 100 mmol/ L 96-108 Not Available [facility] (Outpatient) [address] [place], [address], 01/02/2021 12:57:25 01/03/20 21 01/02/2021 COMPR EHENS DWAYNE METAB OLIC PANEL CO2 26 mmol/ L 21-35 Not Available [facility] (Outpatient) [address] [place], [address], 01/02/2021 12:57:25 01/03/20 21 01/02/2021 COMPR EHENS WDAYNE METAB OLIC PANEL BUN 11 mg/dL 6-19 Not Available [facility] (Outpatient) [address] [place], [address], 01/02/2021 12:57:25 01/03/20 21 01/02/2021 COMPR EHENS DWAYNE METAB OLIC PANEL creatinine 0.60 mg/dL 0.5-1. 5 Not Available [facility] (Outpatient) [address] [place], [address], 01/02/2021 12:57:25 01/03/20 21 01/02/2021 COMPR EHENS DWAYNE METAB OLIC PANEL glucose 96 mg/dL 70-99 Not Available [facility] (Outpatient) [address] [place], [address], 01/02/2021 12:57:25 01/03/20 21 01/02/2021 COMPR EHENS DWAYNE METAB OLIC PANEL albumin 4.4 g/dL 3.9-4. 8 Not Available [facility] (Outpatient) [address] [place], [address], 01/02/2021 12:57:25 01/03/20 21 01/02/2021 COMPR EHENS DWAYNE METAB OLIC PANEL total protein 7.7 g/dL 6.5-8. 0 Not Available [facility] (Outpatient) [address] [place] [address], [address], 01/02/2021 12:57:25 01/03/20 21 01/02/2021 COMPR EHENS DWAYNE METAB OLIC PANEL calcium 10.0 mg/dL 8.4-10 .3 Not Available [facility] (Outpatient) [address] [place] [address], [address], 01/02/2021 12:57:25 01/03/20 21 01/02/2021 COMPR EHENS DWAYNE METAB OLIC PANEL alkaline phosphatase 76 U/L 39-117 Not Available [facility] (Outpatient) [address] [place] [address], [address], 01/02/2021 12:57:25 01/03/20 21 01/02/2021 COMPR EHENS DWAYNE METAB OLIC PANEL total bilirubin 0.7 mg/dL 0.0-1. 2 Not Available [facility] (Outpatient) [address] [place], [address], 01/02/2021 12:57:25 01/03/20 21 01/02/2021 COMPR EHENS DWAYNE METAB OLIC PANEL AST 15 U/L 0-37 Not Available [facility] (Outpatient) [address] [place], [address], 01/02/2021 12:57:25 01/03/20 21 01/02/2021 COMPR EHENS DWAYNE METAB OLIC PANEL ALT <5 U/L 0-40 Not Available [facility] (Outpatient) [address] [place], [address], 01/02/2021 12:57:25 01/03/20 21 01/02/2021 COMPR EHENS DWAYNE METAB OLIC PANEL globulin 3.3 g/dL 1-4.8 Not Available [facility] (Outpatient) [address] [place], [address], 01/02/2021 12:57:25 01/03/20 21 01/02/2021 COMPR EHENS DWAYNE METAB OLIC PANEL eGFR 88 mL/mi n/1.7 3m2 >59 Estim ated glome rular filtr ation rate calcu lated using the CKD-E PI equat ion. Not Available [facility] (Outpatient) [address] [place], [address], 01/02/2021 12:57:25 01/03/20 21 01/02/2021 COMPR EHENS DWAYNE METAB OLIC PANEL anion gap 14 mmol/ L 10-20 Not Available [facility] (Outpatient) [address] [place] [address], [address], 01/02/2021 12:57:25 01/17/20 21 01/16/2021 HIV-1 /2 ANTIG EN/AN TIBOD Y HIV-1/2 antigen/anti body NON-RE ACTIVE non-re active Not Available [facility] (Outpatient) [address] [place], [address], 01/16/2021 17:32:37 01/17/2001/16/2021 HEPAT ITIS A ANTIB JAILYN, TOTAL HAV total Ab REACTI VE non-re active abnormal Not Available [facility] (Outpatient) [address] [place], [address], 01/16/2021 17:39:45 01/17/2001/16/2021 HEPAT ITIS A ANTIB JAILYN, IGM hepatitis A antibody, IgM NON-RE ACTIVE non-re active Not Available [facility] (Outpatient) [address] [place] [address], [address], 01/16/2021 18:08:24 01/17/2001/17/2021 COMPR EHENS DWAYNE METAB OLIC PANEL sodium 136 mmol/ L 133-14 6 Not Available [facility] (Outpatient) [address] [place], [address], 01/17/2021 15:45:59 01/17/2001/17/2021 COMPR EHENS DWAYNE METAB OLIC PANEL potassium 5.0 mmol/ L 3.3-5. 1 Not Available [facility] (Outpatient) [address] [place], [address], 01/17/2021 15:45:59 01/17/2001/17/2021 COMPR EHENS DWAYNE METAB OLIC PANEL chloride 98 mmol/ L 96-108 Not Available [facility] (Outpatient) [address] [place], [address], 01/17/2021 15:45:59 01/17/2001/17/2021 COMPR EHENS DWAYNE METAB OLIC PANEL CO2 22 mmol/ L 21-35 Not Available [facility] (Outpatient) [address] [place] [address], [address], 01/17/2021 15:45:59 01/17/202021 COMPR EHENS DWAYNE METAB OLIC PANEL BUN 15 mg/dL 6-19 Not Available [facility] (Outpatient) [address] [place], [address], 01/17/2021 15:45:59 01/17/2001/17/2021 COMPR EHENS DWAYNE METAB OLIC PANEL creatinine 0.70 mg/dL 0.5-1. 5 Not Available [facility] ([facility] [address] [place], [address], 01/17/2021 15:45:59 01/17/2001/17/2021 COMPR EHENS DWAYNE METAB OLIC PANEL glucose 77 mg/dL 70-99 Not Available [facility] ([facility]) [address] [place], [address], 01/17/2021 15:45:59 01/17/2001/17/2021 COMPR EHENS DWAYNE METAB OLIC PANEL albumin 4.4 g/dL 3.9-4. 8 Not Available [facility] ([facility]) [address] [place] [address], [address], 01/17/2021 15:45:59 01/17/20 21 01/17/2021 COMPR EHENS DWAYNE METAB OLIC PANEL total protein 7.2 g/dL 6.5-8. 0 Not Available [facility] ([facility]) [address] [place] [address], [address], 01/17/2021 15:45:59 01/17/2001/17/2021 COMPR EHENS DWAYNE METAB OLIC PANEL calcium 9.7 mg/dL 8.4-10 .3 Not Available [facility] ([facility]) [address] [place] [address], [address], 01/17/2021 15:45:59 01/17/2001/17/2021 COMPR EHENS DWAYNE METAB OLIC PANEL alkaline phosphatase 74 U/L 39-117 Not Available [facility] (Outpatient) [address] [place], [address], 01/17/2021 15:45:59 01/17/2001/17/2021 COMPR EHENS DWAYNE METAB OLIC PANEL total bilirubin 0.4 mg/dL 0.0-1. 2 Not Available [facility] ([facility]) [address] [place], [address], 01/17/2021 15:45:59 01/17/20 21 01/17/2021 COMPR EHENS DWAYNE METAB OLIC PANEL AST 16 U/L 0-37 Not Available [facility] ([facility]) [address] [place] [address], [address], 01/17/2021 15:45:59 01/17/20 21 01/17/2021 COMPR EHENS DWAYNE METAB OLIC PANEL ALT 6 U/L 0-40 Not Available [facility] ([facility]) [address] [place] [address], [address], 01/17/2021 15:45:59 01/17/2001/17/2021 COMPR EHENS DWAYNE METAB OLIC PANEL globulin 2.8 g/dL 1-4.8 Not Available [facility]) [address] [place] [address], [address], 01/17/2021 15:45:59 01/17/20 21 01/17/2021 COMPR EHENS DWAYNE METAB OLIC PANEL eGFR 84 mL/mi n/1.7 3m2 >59 Estim ated glome rular filtr ation rate calcu lated using the CKD-E PI equat ion. Not Available [facility] ([facility]) [address] [place] [address], [address], 01/17/2021 15:45:59 01/17/20 21 01/17/2021 COMPR EHENS DWAYNE METAB OLIC PANEL anion gap 21 mmol/ L 10-20 high Not Available [facility]) [address] [place] [address], [address], 01/17/2021 15:45:59 01/17/20 21 01/21/2021 HEPAT ITIS B VIRAL LOAD (PCR) HBV DNA detect/qnt UNDETE CTED IU/mL undete cted Not Available [facility] [address] [place], [address], 01/21/2021 16:40:48 04/09/19 22 04/09/2021 COMPR EHENS DWAYNE METAB OLIC PANEL sodium 136 mmol/ L 133-14 6 Not Available [facility] ([facility]) [address] [place], [address], 04/09/2021 14:59:53 04/09/19 22 04/09/2021 COMPR EHENS DWAYNE METAB OLIC PANEL potassium 4.5 mmol/ L 3.3-5. 1 Speci men sligh tly hemol yzed, resul t may be false ly eleva david. Not Available [facility] ([facility]) [address] [place], [address], 04/09/2021 14:59:53 04/09/19 22 04/09/2021 COMPR EHENS DWAYNE METAB OLIC PANEL chloride 100 mmol/ L 96-108 Not Available [facility] ([facility] [address] [place], [address], 04/09/2021 14:59:53 04/09/19 22 04/09/2021 COMPR EHENS DWAYNE METAB OLIC PANEL CO2 24 mmol/ L 21-35 Not Available [facility] ([facility]) [address] [place], [address], 04/09/2021 14:59:53 04/09/19 22 04/09/2021 COMPR EHENS DWAYNE METAB OLIC PANEL BUN 11 mg/dL 6-19 Not Available [facility] ([facility] [address] [place], [address], 04/09/2021 14:59:53 04/09/19 22 04/09/2021 COMPR EHENS DWAYNE METAB OLIC PANEL creatinine 0.60 mg/dL 0.5-1. 5 Not Available [facility] ([facility] [address] [place], [address], 04/09/2021 14:59:53 04/09/19 22 04/09/2021 COMPR EHENS DWAYNE METAB OLIC PANEL glucose 100 mg/dL 70-99 high Not Available [facility] ([facility]) [address] [place], [address], 04/09/2021 14:59:53 04/09/19 22 04/09/2021 COMPR EHENS DWAYNE METAB OLIC PANEL albumin 4.5 g/dL 3.9-4. 8 Not Available [facility] ([facility] [address] [place], [address], 04/09/2021 14:59:53 04/09/19 22 04/09/2021 COMPR EHENS DWAYNE METAB OLIC PANEL total protein 7.2 g/dL 6.5-8. 0 Not Available [facility] ([facility] [address] [place], [address], 04/09/2021 14:59:53 04/09/19 22 04/09/2021 COMPR EHENS DWAYNE METAB OLIC PANEL calcium 9.3 mg/dL 8.4-10 .3 Not Available [facility] ([facility] [address] [place], [address], 04/09/2021 14:59:53 04/09/19 22 04/09/2021 COMPR EHENS DWYANE METAB OLIC PANEL alkaline phosphatase 68 U/L 39-117 Not Available [facility] (Out[facility]) [address] [place], [address], 04/09/2021 14:59:53 04/09/19 22 04/09/2021 COMPR EHENS DWAYNE METAB OLIC PANEL total bilirubin 0.5 mg/dL 0.0-1. 2 Not Available [facility] ([facility] [address] [place], [address], 04/09/2021 14:59:53 04/09/19 22 04/09/2021 COMPR EHENS DWAYNE METAB OLIC PANEL AST 15 U/L 0-37 Not Available [facility] ([facility]) [address] [place], [address], 04/09/2021 14:59:53 04/09/19 22 04/09/2021 COMPR EHENS DWAYNE METAB OLIC PANEL ALT <5 U/L 0-40 Not Available [facility] ([facility]) [address] [place], [address], 04/09/2021 14:59:53 04/09/19 22 04/09/2021 COMPR EHENS DWAYNE METAB OLIC PANEL globulin 2.7 g/dL 1-4.8 Not Available [facility]) [address] [place] [address], [address], 04/09/2021 14:59:53 04/09/19 22 04/09/2021 COMPR EHENS DWAYNE METAB OLIC PANEL eGFR 92 mL/mi n/1.7 3m2 >59 Estim ated glome rular filtr ation rate calcu lated using the CKD-E PI refit equat ion. Not Available [facility] ([facility] [address] [place], [address], 04/09/2021 14:59:53 04/09/19 22 04/09/2021 COMPR EHENS DWAYNE METAB OLIC PANEL anion gap 17 mmol/ L 10-20 Not Available [facility] [address] [place] [address], [address], 04/09/2021 14:59:53 04/09/19 22 04/12/2021 HEPAT ITIS C RNA HCV RNA detect/quant UNDETE CTED IU/mL undete cted (NOTE ) Resul t in log IU/mL is Undet ected . Genot ype testi ng was not perfo rmed due to HCV viral load below 500 IU/mL . ----- ----- ----- ----A DDITI ONAL INFOR RONALD N---- ----- ----- ----- The quant ifica tion range of this assay is 15 to 100,0 00,00 0 IU/mL (1.18 log to 8.00 log IU/mL ). Testi ng was perfo rmed using the jamal HCV test ([employer] with the jamal [employer] Syste m. Not Available [facility] [address] [place] [address], [address], 04/12/2021 00:18:58 04/09/19 22 04/12/2021 HEPAT ITIS B VIRAL LOAD (PCR) HBV DNA detect/qnt UNDETE CTED IU/mL undete cted Not Available [facility]) [address] [place] [address], [address], 04/12/2021 00:28:10 04/11/19 22 04/12/2021 HEPAT ITIS C VIRAL LOAD (PCR) HCV RNA detect/qnt UNDETE CTED IU/mL undete cted Not Available [facility]) [address] [place] [address], [address], 04/12/2021 18:07:54 04/11/19 22 04/12/2021 HEPAT ITIS B VIRAL LOAD (PCR) HBV DNA detect/qnt UNDETE CTED IU/mL undete cted Not Available [facility] ([facility]) [address] [place] [address], [address], 04/12/2021 19:45:51 08/21/19 22 08/21/2021 HEPAT ITIS B VIRAL LOAD (PCR) HBV DNA detect/qnt UNDETE CTED IU/mL undete cted Not Available [facility] ([facility]) [address] [place], [address], 08/21/2021 18:39:20 08/21/19 22 08/21/2021 HEPAT ITIS C VIRAL LOAD (PCR) HCV RNA detect/qnt UNDETE CTED IU/mL undete cted Not Available [facility] [address] [place], [address], 08/21/2021 19:11:19 09/05/19 22 09/04/2021 CBC WBC 6.92 K/? ? ?L 3.98-1 0.04 Not Available [address], [address], 09/04/2021 13:22:57 09/05/19 22 09/04/2021 CBC RBC 5.16 M/? ? ?L 3.93-5 .22 Not Available [address], [address], 09/04/2021 13:22:57 09/05/19 22 09/04/2021 CBC HGB 14.6 g/dL 11.2-1 5.7 Not Available [address], [address], 09/04/2021 13:22:57 09/05/19 22 09/04/2021 CBC HCT 45.6 % 34.1-4 4.9 high Not Available [address], [address], 09/04/2021 13:22:57 09/05/19 22 09/04/2021 CBC MCV 88.4 fL 79.4-9 4.8 Not Available [address], [address], 09/04/2021 13:22:57 09/05/19 22 09/04/2021 CBC MCH 28.3 pg 25.6-3 2.2 Not Available [address], [address], 09/04/2021 13:22:57 09/05/19 22 09/04/2021 CBC MCHC 32.0 g/dL 32.2-3 5.5 low Not Available [address], [address], 09/04/2021 13:22:57 09/05/19 22 09/04/2021 CBC plt 302 K/? ? ?L 182-36 9 Not Available [address], [address], 09/04/2021 13:22:57 09/05/19 22 09/04/2021 CBC MPV 9.4 fL 9.4-12 .3 Not Available [address], [address], 09/04/2021 13:22:57 09/05/19 22 09/04/2021 CBC neut% 53.0 % 34.0-7 1.1 Not Available [address], [address], 09/04/2021 13:22:57 09/05/19 22 09/04/2021 CBC neut# 3.67 1.56-6 .13 Not Available [address], [address], 09/04/2021 13:22:57 09/05/19 22 09/04/2021 CBC lymph % 28.6 % 19.3-5 1.7 Not Available [address], [address], 09/04/2021 13:22:57 09/05/19 22 09/04/2021 CBC lymph # 1.98 K/? ? ?L 1.18-3 .74 Not Available [address], [address], 09/04/2021 13:22:57 09/05/19 22 09/04/2021 CBC mono% 13.0 % 4.7-12 .5 high Not Available [address], [address], 09/04/2021 13:22:57 09/05/19 22 09/04/2021 CBC mono# 0.90 0.24-0 .56 high Not Available [address], [address], 09/04/2021 13:22:57 09/05/19 22 09/04/2021 CBC eo% 3.8 % 0.7-5. 8 Not Available [address], [address], 09/04/2021 13:22:57 09/05/19 22 09/04/2021 CBC eo# 0.26 0.04-0 .36 Not Available [address], [address], 09/04/2021 13:22:57 09/05/19 22 09/04/2021 CBC baso% 1.3 % 0.1-1. 2 high Not Available [address], [address], 09/04/2021 13:22:57 09/05/19 22 09/04/2021 CBC baso# 0.09 0.00-0 .08 high Not Available [address], [address], 09/04/2021 13:22:57 09/05/19 22 09/04/2021 CBC RDW-CV 14.1 % 11.7-1 4.4 Not Available [address], [address], 09/04/2021 13:22:57 09/05/19 22 09/04/2021 CBC Ig% 0.300 % 0.000- 1.500 Ig % >0.5 Indic ates possi ble Left Shift Not Available [address], [address], 09/04/2021 13:22:57 09/05/19 22 09/04/2021 CBC Ig# 0.020 0.000- 0.093 Not Available [address], [address], 09/04/2021 13:22:57 09/05/19 22 09/04/2021 CBC NRBC% 0.0 % 0.0-0. 2 Not Available [address], [address], 09/04/2021 13:22:57 09/05/19 22 09/04/2021 CBC NRBC# 0.000 0.000- 0.012 Not Available [address], [address], 09/04/2021 13:22:57 09/05/19 22 09/04/2021 TSH TSH 6.09 uIU/m L 0.50-6 .00 high The [employer] can [employer] ge [employer] End[employer] rinol ogy and Ameri can Thyro id Assoc iatio n recom mend goal TSH value s betwe en 0.4-4 .0 mIU/m L. Not Available [address], [address], 09/04/2021 15:33:08 09/05/19 22 09/08/2021 VITAM IN B12 vitamin B12 710 pg/mL 230-10 50 Not Available [address], [address], 09/08/2021 16:31:39 09/05/19 22 09/08/2021 HEPAT ITIS B SURFA CE AB IMMUN ITY, QN hepatitis B surface Ab immunity, qn 31 mIU/m L > or = 10 normal PATIE NT HAS IMMUN ITY TO HEPAT ITIS B VIRUS . For addit ional infor gael barrera e refer to http: //[facility] catazeb n.que stdia gnost ics.c om/fa q/FAQ 105 (This link is being provi ded for infor ronald wong/ tiana olivarezo ses only) . Not Available [facility] [place] [facility] [address] [place], [address], 09/08/2021 17:28:35 09/05/19 22 09/08/2021 HIV 1 RNA, QN PCR W/REF JESS TO GENOT YPE HIV 1 RNA, qn PCR NOT DETECT ED copie s/mL Not Available [facility] [place] [facility] [address], [place], [address], 09/08/2021 17:28:36 09/05/19 22 09/08/2021 HIV 1 RNA, QN PCR W/REF JESS TO GENOT YPE HIV 1 RNA, qn PCR NOT DETECT ED log_c ps/mL Refer ence Range : Not Detec david copie s/mL Not Detec david Log copie s/mL The test was perfo rmed using Real- Time Polym erase Chain React ion. Repor table Range : 20 copie s/mL to 10,00 0,000 copie s/mL (1.30 Log copie s/mL to 7.00 Log copie s/mL) . Not Available [facility] [place] [facility] [address], [place], [address], 09/08/2021 17:28:36 09/24/19 22 09/23/2021 FREE T4 free T4 0.85 NG/dL 0.75-1 .54 Not Available [address], [address], 09/23/2021 15:49:14 09/24/19 22 09/23/2021 TSH TSH 4.66 uIU/m L 0.50-6 .00 The Ameri can Colle ge of Endoc rinol ogy and Ameri can Thyro id Assoc iatio n recom mend goal TSH value s betwe en 0.4-4 .0 mIU/m L. Not Available [address], [address], 09/23/2021 16:09:50 09/24/19 22 09/30/2021 THYRO ID PEROX IDASE ANTIB JAILYN thyroid peroxidase antibody <3.0 IU/mL 0.0-10 .0 < Not Available [facility] [address] [place], [address], 09/30/2021 14:33:53 11/02/19 21 11/01/2020 US abdom en limit ed right upper quadr ant COMPAR JIMMIE: None TECHNI QUE: Limite d ultras onic examin ation of the abdome n was perfor med and multip le static images obtain ed. FINDIN GS: Pancre as: No abnorm alitie s detect ed in the visual ized portio ns. Portio ns of the tail are obscur ed. Upper Aorta and IVC: Some minor athero sclero tic change s noted. No worris ome dilata tion in the visual ized segmen ts. Gallbl adder and Biliar y tree: No abnorm ality detect ed. Common bile duct measur ed at 7 mm. Liver: No abnorm ality detect ed. Right Kidney : A single image which is not includ ed on the kidney demons trates no hydron ephros is in the upper half. Other: No ascite s. Main portal vein is patent and hepato petal. IMPRES HAKAN: No hepati c abnorm ality of concer n. Limite d visual izatio n of pancre atic tail. Electr onical ly Signed by: Rosalino tejada on 11/02/19 11:17 AM Interp reted by: Rosalino tejada MD Signed by: Rosalino tejada MD 11/01/20 Final result US ordere d for positi ve Hep C antibo dy Pancre as is WNL Aorta and IVC Px are normal The liver is homoge neous No hydro in the right kidney GB and CBD are WNL LEONID ROSI PAYTON [facility] [address] [place], [address], 11/21/2020 11:09:13 12/27/19 22 12/25/2021 nerve condu ction study No observ ation record ed. [facility] [address] [place], [address], 12/26/2021 08:51:49 08/29/19 23 08/27/2022 MRI cervi randolph spine (neur o) focus witho ut contr ast MRI CERVIC AL SPINE (NEURO ) FOCUS WITHOU T CONTRA ST COMPAR JIMMIE: None FINDIN GS: Verteb shannan and marrow : No acute fractu re. No marrow replac ing lesion . Spinal Cord: No spinal cord signal abnorm ality. Soft Tissue : No abnorm alitie s of the parasp inal soft tissue s. Findin gs by level : C2-C3: Bilate ral facet arthro guadalupe. No signif icant lining vamper ior disc abnorm ality. No spinal canal or forami nal stenos is. C3-C4: Bilate ral facet arthro guadalupe, severe on the right. Minima l soledad listhe sis. Right uncove rtebra l osteop hytes. No signif icant lining vamper ior disc abnorm ality or spinal canal stenos is. Severe right and mild left forami nal stenos is. C4-C5: Bilate ral facet arthro guadalupe. Mild soledad listhe sis. Forest Worker ior disc-o steoph yte comple x. Mild spinal canal stenos is. Bilate ral uncove rtebra l osteop hytes. Severe right and modera te left forami nal stenos is. C5-C6: Bilate ral facet arthro guadalupe. Forest Worker ior disc-o steoph yte comple x. Mild to modera te spinal canal stenos is. Severe right and mild left forami nal stenos is. C6-C7: Bilate ral facet arthro guadalupe. Ligame ntum flavum thicke elana. Forest Worker ior disc-o steoph yte comple x. Severe spinal canal stenos is. Right uncove rtebra l osteop hytes. Severe right and mild left forami nal stenos is. C7-T1: Bilate ral facet arthro guadalupe. Mild soledad listhe sis. No lining vamper ior disc abnorm ality. No spinal canal or forami nal stenos is. T1-T2: Bilate ral facet arthro guadalupe. Mild soledad listhe sis. No lining vamper ior disc abnorm ality. No spinal canal or forami nal stenos is. IMPRES HAKAN: Multil evel degene rative disc change s, worse at C6-C7 where there is severe spinal canal stenos is. Severe forami nal stenos is is presen t on the right at C3-C4, C4-C5, C5-C6, and C6-C7. Electr onical ly Signed by: Dr. Destin Corrigan on 08/29/19 4:46 PM Interp reted by: Destin Corrigan MD Signed by: Destin Corrigan MD 08/28/22 Final result P/S bilat leg neurop athy, TT R/O STENOS IS, HYPERR EFLEXI A LEONID INE N CAROLINE DIN [facility] [address] [place], [address], 08/29/2022 18:52:37 09/29/19 23 09/28/2022 MAMMO lucia No observ ation record ed. [facility] [address] [place], [address], 09/29/2022 13:25:50 10/01/19 24 10/01/2023 MAMMO luciag No observ ation record ed. [address] [place], [address], 10/01/2023 14:19:54 Result Notes None recorded. Problems Name Problem SNOMED Code Status Onset Date Resolution Date Notes Provider Name and Address Organization Details Recorded Time Sciatica 62268286 Active Waqas Kitchen , PT [address] [place], [address] , [facility] 5 09:03:24 Dysuria 26563392 Completed 02/15/2013 Not Available [facility] 3 02:02:00 Allergic rhinitis 83522381 Active Not Available [facility] 3 03:14:57 Pain of hip region 74276664 Active Lucila Renteria, TRANSFORMER STOCK CLERK [address] [place], [address] , [facility] 6 19:10:49 Viral hepatiti s C 72276338 Active 2020 Dx 09/2020 referred to STAR Osman MD [address] [place] [address], [address] , [facility] 1 08:13:09 Age related macular degenera tion 251700270 Active 2023 Chaya oquendo PA-C [address] [place] [address], [address] , [facility] 4 11:42:17 History of hepatiti s C 33500429938 101 Active 2023 Chaya oquendo PA-C [address] [place] [address], [address] , [facility] 4 11:53:16 Bilatera l hearing loss 92581475 Active 2023 Chaya oquendo PA-C [address] [place] [address], [address] , [facility] 4 12:02:26 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 Procedures Surgical History Date Name Laterality Status Provider Name and Address Organization Details Recorded Time 09/20/19 Medicare Wellness Visit completed Chaya bowie PA-C [address] [place] [address], [address], [facility] 09/20/2023 12:16:20 09/20/19 Cardiovascular disease risk reduction counseling completed Chaya bowie PA-C [address] [place] [address], [address], [facility] 09/20/2023 12:24:40 10/28/19 fusion of joint of cervical spine by anterior approach for deformity of cervical spine completed Chaya bowie PA-C [address] [place] [address], [address], [facility] 09/20/2023 11:45:00 09/10/19 23 Medicare Wellness Visit completed Verna Alfred MA [facility] 09/08/2022 17:47:10 09/05/19 22 Medicare Wellness Visit completed Yarelis Pierre [facility] 09/04/2021 08:01:21 09/05/19 22 Alcohol use screening completed Yarelis Pierre [facility] 09/04/2021 08:01:21 09/05/19 22 Cardiovascular disease risk reduction counseling completed Yarelis Pierre [facility] 09/04/2021 08:01:21 08/15/19 21 Medicare Wellness Visit completed Flori Escobar MA [facility] 08/13/2020 08:53:32 08/15/19 21 prevention-cardiov ascular risk reduction counseling completed Flori Escobar MA [facility] 08/13/2020 08:53:32 08/15/19 21 prevention-annual alcohol misuse screening completed Flori Escobar MA [facility] 08/13/2020 08:53:32 08/15/19 21 Medicare Annual Wellness Visit completed Flori Escobar MA [facility] 08/14/2020 10:20:22 07/30/19 19 Medicare Wellness Visit completed Leanna Oliva MA [facility] 07/29/2018 14:27:28 07/30/19 19 Wound Care completed Leanna Oliva MA [facility] 07/29/2018 14:37:03 07/03/19 18 Medicare Wellness Visit completed Flori Bowen CMA [facility] 07/02/2017 14:16:14 04/09/19 18 Cerumen Removal - Irrigation/Lavage completed Barbara Freeman [facility] 04/09/2017 11:01:27 05/30/19 17 Medicare Wellness Visit completed Kavya Tang MA [facility] 05/29/2016 13:38:58 05/29/19 16 Medicare Wellness Visit completed Kavya Tang MA [facility] 05/29/2015 14:30:18 02/07/20 15 13598: Therapeutic Exercise completed Waqas Kitchen, PT [address] [place], [address], [facility] 02/07/2015 09:00:47 02/05/20 15 Wound Care completed Angelika Steele RN, BSN [facility] 02/04/2015 14:49:12 02/05/20 15 Incise and Drain with packing completed Jessica Carey MD [address] [place], [address], [facility] 02/05/2015 21:31:44 01/31/20 15 Wart completed Lucila Renteria, DEVENDRA [address] [place], [address], [facility] 01/31/2015 19:01:29 01/24/20 15 94124: Therapeutic Exercise completed Waqas Kitchen, PT [address] [place], [address], [facility] 01/23/2015 18:12:47 01/10/20 15 18953: Therapeutic Exercise completed Waqas Kitchen, PT [address] [place], [address], [facility] 01/09/2015 16:49:04 01/03/20 15 94881: Therapeutic Exercise completed Waqas Kitchen, PT [address] [place], [address], [facility] 01/02/2015 15:35:02 12/27/19 15 18945: Therapeutic Exercise completed Waqas Kitchen, PT [address] [place], [address], [facility] 12/26/2014 11:39:13 12/27/19 15 32698: Manual Therapy completed Waqas Kitchen, PT [address] [place], [address], [facility] 12/26/2014 11:39:13 12/25/19 15 14939: Therapeutic Exercise completed Waqas Kitchen, PT [address] [place], [address], [facility] 12/24/2014 11:40:36 12/25/19 15 55915: Manual Therapy completed Waqas Kitchen, PT [address] [place], [address], [facility] 12/24/2014 11:40:36 12/20/19 15 63026: Therapeutic Exercise completed Waqas Kitchen, PT [address] [place], [address], [facility] 12/19/2014 11:07:01 12/20/19 15 18541: Manual Therapy completed Waqas Kitchen, PT [address] [place], [address], [facility] 12/19/2014 11:07:01 12/18/19 15 76829: Therapeutic Exercise completed Waqas Kitchen, PT [address] [place], [address], [facility] 12/17/2014 11:44:01 12/18/19 15 81845: Manual Therapy completed Waqas Kitchen, PT [address] [place], [address], [facility] 12/17/2014 11:44:01 12/08/19 15 88987: Therapeutic Exercise completed Waqas Kitchen, PT [address] [place], [address], [facility] 12/07/2014 12:39:15 12/08/19 15 50597: Manual Therapy completed Waqas Kitchen, PT [address] [place], [address], [facility] 12/07/2014 12:39:15 12/05/19 15 61164: Therapeutic Exercise completed Waqas Kitchen, PT [address] [place], [address], [facility] 12/05/2014 06:43:22 12/05/19 15 84323: Manual Therapy completed Waqas Kitchen, PT [address] [place], [address], [facility] 12/05/2014 06:43:22 12/01/19 15 59502: Therapeutic Exercise completed Waqas Kitchen, PT [address] [place], [address], [facility] 11/30/2014 12:05:47 12/01/19 15 [address]7089: Manual Therapy completed Waqas Kitchen, PT [address] [place], [address], [facility] 11/30/2014 12:05:47 11/29/19 15 81845: PT Evaluation completed Waqas Kitchen, PT [address] [place], [address], [facility] 11/29/2014 13:38:07 10/28/19 15 total replacement of hip completed Chaya bowie PA-C [address] [place], [address], [facility] 09/20/2023 11:44:08 04/10/19 15 Medicare Wellness Visit completed Kavya Tang MA [facility] 04/10/2014 14:53:44 02/16/20 13 Medicare Wellness Visit completed Kavya Tang MA [facility] 02/15/2013 14:45:14 02/15/20 12 Medicare Wellness Visit completed Kavya Tang MA [facility] 02/15/2012 15:02:11 12/04/19 12 Wart completed Lucila Renteria NP [address] [place], [address], [facility] 12/06/2011 11:07:47 12/04/19 12 Destruction of skin lesion completed Luclia Renteria NP [address] [place], [address], [facility] 12/06/2011 11:07:47 12/20/19 11 Medicare Wellness Visit completed Kavya Tang MA [facility] 12/19/2010 10:51:15 Imaging Results None recorded. Procedure Notes None recorded. Medical Equipment None Reported. Allergies Allergen ID Allergen Name Allergen Category Reaction Reaction Severity Criticality Documentation Date Start Date Code Code System Note Provider Name and Address Organization Details Recorded Time 886993 oxycodone medicatio n nausea Not available Not available 11/30/2018 7804 [facility] 10:12:28 08080 epinephri ne medicatio n Not available Not available Not available 12/19/2010 3992 RxNorm palpi estefaníaio ns Nelly Tapia [facility], [facility] 2 13:41:09 Medications Name Sig Start Date Stop Date Status Note LastModified by Organization Details LastModified Time compounde d medicatio n TAKE 1 CAPSULE BY MOUTH DAILY 2019 active Not Available Not Available Not Avai lable celecoxib 200 mg capsule active Not Available Not Available Not Available amoxicill in 500 mg capsule TAKE 4 CAPSULES BY MOUTH ONE HOUR PRIOR TO DENTAL APPOINTM ENT 09/09 completed Not Available Not Available Not Available azelastin e 0.05 % eye drops INSTILL 1 DROP INTO AFFECTED EYE(S) BY OPHTHALM IC ROUTE 2 TIMES PER DAY 2023 active Not Available Not Available Not Avai lable chlorphen iramine 4 mg tablet Take 1 tablet 3 times a day by oral route as needed. 11/30 completed Not Available Not Available Not Available cetirizin e 10 mg tablet TAKE 1 TABLET BY MOUTH EVERY DAY PRN active Not Available Not Available No t Available azithromy hetal 250 mg tablet TAKE 2 TABLETS (500 MG) BY ORAL ROUTE ONCE DAILY FOR 1 DAY THEN 1 TABLET (250 MG) BY ORAL ROUTE ONCE DAILY FOR 4 DAYS 07/04 completed Not Available Not Available Not Available hydrocodo ne 5 mg-acetam inophen 325 mg tablet Take 1 tablet every 6 hours by oral route as needed for 7 days. 09/19 completed ordered at [facility] Not Available Not Available Not Available ciproflox acin 500 mg tablet take 1 tab bid x 3d if diarrhea while travelin g 07/04 completed Not Available Not Available Not Available sulfameth oxazole 800 mg-trimet hoprim 160 mg tablet TAKE 1 TABLET BY MOUTH TWICE A DAY FOR 3 DAYS 12/28 completed Not Available Not Available Not Available amoxicill in 500 mg tablet TAKE 4 TABLETS BY MOUTH 1 HOUR PRIOR TO DENTAL TREATMEN T active for prophy/ R hip replace' t Not Available Not Available Not Available amoxicill in 875 mg tablet TAKE 1 TABLET BY MOUTH TWICE A DAY FOR 7 DAYS 09/19 completed Not Available Not Available Not Available hydromorp redd 2 mg tablet active Not Available Not Available Not Available lorazepam 0.5 mg tablet take 1/2-1 tablet twice daily only as needed for anxiety 09/19 completed 1 states as needed ljl Not Available Not Available Not Available Valium 2 mg tablet Take 1 tablet 3 times a day by oral route as needed for 7 days. 09/19 completed Ordered at [facility] Not Available Not Available Not Available codeine 10 mg-guaife nesin 100 mg/5 mL oral liquid Take 10 mL every 4 hours by oral route as needed. 04/11 completed Not Available Not Available Not Available mupirocin 2 % topical ointment active Not Available Not Available Not Available warfarin 1 mg tablet active Not Available Not Available Not Available fluticaso ne propionat e 50 mcg/actua tion nasal spray,avis pension PRN 09/19 completed Not Available Not Available Not Available amoxicill in 875 mg-potass ium clavulana te 125 mg tablet TAKE 1 TABLET BY MOUTH TWICE A DAY FOR 7 DAYS 12/12 completed Not Available Not Available Not Available nitrofura ntoin monohydra te/macroc rystals 100 mg capsule 12/28 completed Not Available Not Available Not Available Mavyret 100 mg-40 mg tablet TAKE 3 TABLETS BY MOUTH ONCE DAILY AT THE SAME TIME WITH FOOD 09/09 completed not longer taking 09/04/21 mK Not Available Not Available Not Available Flowflex COVID-19 Antigen Home Test kit REFER TO MANUFACT URER INSTRUCT IONS INCLUDED IN PACKAGIN G 09/09 completed Not Available Not Available Not Available Vitals Date Recorded Body height Body mass index (BMI) Body weight Heart rate Systolic blood pressure Diastolic blood pressure Provider Name and Address Organization Details Last Updated DateTime 2 165.1 cm 20.7 kg/m2 70917.8 5 g 60 /min 130 mm[Hg] 70 mm[Hg] Yarelis Pierre [facility] 2 09:25:17 Date Recorded Body weight Body mass index (BMI) Body height Oxygen saturation Oxygen saturation in Arterial blood by Pulse oximetry Heart rate Systolic blood pressure Diastolic blood pressure Provider Name and Address Organization Details Last Updated DateTime 3 25438.8 5 g 21 kg/m2 163.83 cm 98 % 98 % 68 /min 122 mm[Hg] 64 mm[Hg] Verna Alfred [facility] 3 10:32:30 Date Recorded Body weight Body mass index (BMI) Body height Oxygen saturation Oxygen saturation in Arterial blood by Pulse oximetry Heart rate Systolic blood pressure Diastolic blood pressure Provider Name and Address Organization Details Last Updated DateTime 4 42841.9 6 g 20.8 kg/m2 163.83 cm 98 % 98 % 66 /min 128 mm[Hg] 70 mm[Hg] Brook Milton [facility] 4 11:23:21 Date Recorded Body height Body temperature Heart rate Oxygen saturation Oxygen saturation in Arterial blood by Pulse oximetry Systolic blood pressure Diastolic blood pressure Provider Name and Address Organization Details Last Updated DateTime 4 163.83 cm 97.5 [degF] 68 /min 98 % 98 % 124 mm[Hg] 68 mm[Hg] GABY Kaufman [facility] 4 09:42:16 Date Recorded Body height Body mass index (BMI) Body weight Heart rate Systolic blood pressure Diastolic blood pressure Provider Name and Address Organization Details Last Updated DateTime 1 165.1 cm 21.2 kg/m2 27548.3 3 g 80 /min 120 mm[Hg] 60 mm[Hg] Yarelisalexandru Pierre [facility] 1 10:53:00 Social History Question Answer Notes LastModified by Organizat ion Details LastModified Time Tobacco Smoking Status Former Smoker smoked age [age] 03/25/2018 Not Available [employer] 08/21/2010 02:09:02 Do You Have An Advance Directive? Yes Danielle )daughter- [phone] Information not available 12/18/2009 Do You Wear A Helmet When Biking? No Does Not Bike [email or web address] Information not available 09/04/2021 What Is Your Level Of Caffeine Consumption? Moderate 1-2 Cups In Am [email or web address] Information not available 09/04/2021 What Type Of Diet Are You Following? REGULAR Does Not Eat A Lot Of Gluten Information not available 09/09/2022 Which Illicit Or Recreational Drugs Have You Used? None Information not available 09/09/2022 Education 4 Year College Information not available 05/29/2015 What Is The Highest Grade Or Level Of School You Have Completed Or The Highest Degree You Have Received? [id number] [email or web address] Information not available 09/04/2021 Have There Been Any Changes To Your Family Or Social Situation? No Information not available 09/04/2021 When Did You Quit Smoking? 16+yearssinc [email or web address] te Information not available 05/29/2015 Are There Any Guns Present In Your Home? No 17 Information not available 02/12/2011 Do You Use Insect Repellent Routinely? Yes [email or web address] Information not available 09/04/2021 Live Alone Or With Others? Alone 17 Information not available 02/12/2011 Patient Has Health Care Proxy Signed And In Chart No FORM GIVEN 09/20/23 [email or web address] Information not available 12/15/2017 CCM Consent Discussion 09/09/2022 [email or web address] Information not available 09/28/2022 Marital Status BF Informati on not available 12/19/2010 Mosquito Repellent Used Routinely Yes 17 Information not available 02/12/2011 What Was The Date Of Your Most Recent Tobacco Screening? 09/29/2023 [email or web address] Information not available 09/29/2023 How Many Children Do You Have? 2 17 Information not available 02/12/2011 What Is Your Relationship Status? Domestic Partner Information not available 09/04/2021 Do You Use Your Seat Belt Or Car Seat Routinely? Yes [email or web address] Information not available 09/04/2021 Seat Belts Used Routinely Yes 17 Information not available 02/12/2011 Are You Sexually Active? Yes 17 Information not available 02/12/2011 Smoke Alarm In Home Yes 17 Information not available 02/12/2011 Do You Have Smoke And Carbon Monoxide Detectors In Your Home? Yes [email or web address] Information not available 09/04/2021 At What Age Did You Start Smoking Tobacco? 15 Information not available 09/09/2022 Are You Passively Exposed To Smoke? No [email or web address] Information not available 09/04/2021 How Much Tobacco Do You Smoke? No 17 Information not available 02/12/2011 General Stress Level Low Information not available 08/14/2020 Do You Use Sunscreen Routinely? Yes 17 Information not available 02/12/2011 How Many Days In The Past Year Have You Consumed 4 Or More Drinks? 0 [email or web address] Information not available 09/04/2021 Sex: Female Functional Status Question Answer Note LastModified by Organizat ion Details LastModified Time Do you use any illicit or recreational drugs? Yes [email or web address] Information not available 09/04/2021 Do you or have you ever used any other forms of tobacco or nicotine? No [email or web address] Information not available 09/04/2021 What is your level of alcohol consumption? Moderate 2 glasses wine daily Information not available 08/14/2020 Do you or have you ever used smokeless tobacco? Never used smokeless tobacco Information not available 04/11/2019 Are you currently employed? 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 Never used electronic cigarettes Information not available 04/11/2019 What is your exercise level? Moderate [email or web address] Information not available 02/12/2011 Mental Status None recorded. Family History Relationship Description Onset Age of this Age Resolved Age Notes LastModified by Organization Details LastModified Time Mother Malignant tumor of breast 86 previo usly record ed as Cancer -Breas t [email or web address] Not available 11/07/2012 03:01:00 Father Heart disease 69 [email or web address] Not available 11/07/2012 03:01:00 Notes:Brother with Hep C, s/ p liver transplant, d liver cancer 07/05 father d 69 CHF mother dx breast cancer 80s, mother lived to be 100 yrs old Medical History Condition Response Menopausal Symptoms Colon Polyps Y Gynecological HistoryNo gynecological history recorded. Obstetrics History GPAL:G 0 P 0 0 0 0 Immunizations Vaccine Type Date Status Note Provider Nam e and Address Organization Details Recorded Time zoster live 2 completed Not Available [facility] 04/15/2019 02:38:56 Influenza, split virus, trivalent, PF 3 completed Not Available [facility] 04/15/2019 02:19:00 Td (adult), 5 Lf tetanus toxoid, preservative free, adsorbed 6 completed Not Available [facility] 04/15/2019 02:20:36 pneumococcal polysaccharide PPV23 2 completed Yarelis sheridan [facility] 09/04/2021 09:59:56 COVID-19, mRNA, LNP-S, PF, 100 mcg/0.5mL dose or 50 mcg/0.25mL dose 1 completed RUBA Boyer [facility] 09/09/2022 16:59:20 COVID-19, mRNA, LNP-S, PF, 100 mcg/0.5mL dose or 50 mcg/0.25mL dose 2 completed RUBA Boyer [facility] 09/09/2022 17:00:02 zoster recombinant 1 completed Yarelis sheridan [facility] 09/04/2021 16:38:10 zoster recombinant 1 completed Yarelis sheridan [facility] 09/04/2021 16:38:18 COVID-19, mRNA, LNP-S, PF, 50 mcg/0.5 mL dose 2 completed RUBA Boyer [facility] 09/09/2022 17:01:07 COVID-19, mRNA, LNP-S, bivalent, PF, 50 mcg/0.5 mL or 25mcg/0.25 mL dose 2 completed RUBA Boyer [facility] 09/09/2022 17:02:19 Past Encounters Encounter ID Performer Location Encounter Start Date Encounter Closed Date Diagnosis/Indication Diagnosis SNOMED-CT Code Diagnosis ICD10 Code Diagnosis Note [id number] Lucila Renteria NP , [facility], [address] [place] [address] 05/08/2008 08:01:29 05/09/2008 12:36:08 [id number] DEVENDRA Roque, [facility], [address] [place] [address] 10/03/2008 13:47:58 10/03/2008 16:49:47 [id number] [facility] - [facility] [address] [place] [address] 10/05/2008 09:00:00 10/10/2008 10:37:58 [id number] DEVENDRA Roque, [facility], [address] [place] [address] 12/18/2009 13:56:34 12/19/2009 12:49:34 [id number] DEVENDRA Roque, [facility], [address] [place] [address] 12/19/2010 10:21:58 12/22/2010 09:22:36 [id number] DEVENDRA Roque, [facility], [address] [place] [address] 12/04/2011 13:27:13 12/04/2011 14:19:38 [id number] Noe Gallo MD Radiology , [address] [address] 12/04/2011 13:58:21 12/07/2011 10:37:56 [id number] Noe Gallo MD Radiology , [address] [address] 12/04/2011 14:00:09 12/07/2011 10:39:24 [id number] DEVENDRA Roque, [facility], [address] [place] [address] 02/15/2012 14:26:36 02/15/2012 15:53:00 [id number] DEVENDRA Schroeder, [facility], [address] [place] [address] 04/08/2012 14:42:38 04/08/2012 15:11:59 [id number] DEVENDRA Roque, [facility], [address] [place] [address] 02/15/2013 14:30:41 02/15/2013 16:10:29 Adult health examination [id number] see Risk Assessment and Lifestyle Change Counseling section above Recent pelvic/tanya ast exam at [facility] 850689560 Influenza vaccine needed 1803910273 106 Menopausal syndrome 943802791 Pain of hip region 15743673 [id number] Lucila Renteria NP , [facility], [address] [place] [address] 04/10/2014 14:36:05 04/10/2014 15:29:09 Adult health examination 237283727 see Risk Assessment and Lifestyle Change Counseling section above continue healthy habits Counseling [id number] Waqas Kitchen , PT Physical Therapy, [facility] [address] [place] [address] 11/28/2014 10:41:52 11/30/2014 14:41:51 Pain of hip region 39461550 Total repl acement of hip 39240325 [id number] Waqas Kitchen , PT Physical Therapy, [address] [address] 11/30/2014 10:56:34 11/30/2014 11:51:54 Pain of hip region 22546004 Total repl acement of hip 56153897 [id number] Waqas Kitchen , PT Physical Therapy, [address] [address] 12/04/2014 12:29:11 12/05/2014 08:26:09 Pain of hip region 17770324 Total repl acement of hip 69922231 [id number] Waqas Kitchen , PT Physical Therapy, [address] [address] 12/07/2014 11:59:37 12/07/2014 14:04:02 Pain of hip region 14106490 Total repl acement of hip 91090108 [id number] Waqas Kitchen , PT Physical Therapy, [address] [address] 12/17/2014 10:55:00 12/18/2014 07:13:57 Pain of hip region 72717302 Sciatica 92673871 Total repl acement of hip 67198295 [id number] Waqas Kitchen , PT Physical Therapy, [address] [address] 12/19/2014 11:01:10 12/19/2014 12:42:25 Pain of hip region 62477340 Sciatica 76545592 Total repl acement of hip 39391902 [id number] Waqas Kitchen , PT Physical Therapy, [address] [address] 12/24/2014 11:02:40 12/24/2014 11:42:00 Pain of hip region 89554732 Sciatica 70750418 Total repl acement of hip 65321894 [id number] Waqas Kitchen , PT Physical Therapy, [address] [address] 12/26/2014 10:59:37 12/26/2014 12:31:39 Pain of hip region 89862518 Sciatica 87732066 Total repl acement of hip 36000517 [id number] Waqas Kitchen , PT Physical Therapy, [address] [address] 01/02/2015 15:00:19 01/02/2015 15:46:37 Pain of hip region 25633071 M25.551 Sciatica 53741744 M54.31 Total repl acement of hip 17269979 Z96.317 [id number] Waqas Kitchen , PT Physical Therapy, [address] [address] 01/09/2015 14:59:17 01/14/2015 13:13:38 Pain of hip region 00987310 M25.551 Sciatica 63854731 M54.31 Total repl acement of hip 60237990 Z96.580 [id number] Waqas Kitchen , PT Physical Therapy, [address] [address] 01/23/2015 14:54:40 01/24/2015 07:42:16 Pain of hip region 12116465 M25.551 Sciatica 22010364 M54.31 Total repl acement of hip 82508856 Z96.546 [id number] Lucila Renteria NP , [facility], [address] [place] [address] 01/30/2015 15:39:12 01/30/2015 16:05:41 Hand wart 407490765 B07.8 discussed postcare rt prn [id number] MD NICOLE Mar, [facility], [address] [place] [address] 02/04/2015 13:45:46 02/04/2015 14:35:51 Hand wart 254002081 B07.8 Blood blister 989868392 T14.90 blood blister opened today. pt tolerated well; RTO if any further worries. [id number] Waqas Kitchen , PT Physical Therapy, [facility] [address] [place] [address] 02/06/2015 14:54:17 02/07/2015 10:20:24 Pain of hip region 02725062 M25.551 Sciatica 17659940 M54.31 Total repl acement of hip 04731157 Z96.633 [id number] Lucila Renteria NP , [facility], [address] [place] [address] 02/08/2015 13:32:20 02/08/2015 14:07:52 Hand wart 947157826 B07.8 ok to leave open to air seems as though the loose skin of the PIP was affected by the liquid nitrogen causing an exaggerate d reaction she will call with any redness, swelling, sx infection [id number] DEVENDRA Roque, [facility], [address] [place] [address] 05/29/2015 14:14:57 05/29/2015 15:17:21 Adult health examination 490084189 Z00.00 see Risk Assessment and Lifestyle Change Counseling section above Counseling 584976967 Z71 .9 Administra tion of diphtheria and tetanus vaccine 78525391 Z23 [id number] Ho Manning MD , [facility], [address] [place] [address] 05/25/2016 13:48:20 05/25/2016 14:39:31 Acute upper respiratory infection 39139323 J06.9 Educated patient that URI is a viral illness of the upper airways. It is not bacterial and does not benefit from antibiotic s. Average duration of URI is 7-10 days but in a recent trial, treatment at 7-10 days of illness with antibiotic s, intranasal steroids, or placebo did not alter natural history at 3 weeks. Recommende d symptomati c treatments including NSAIDS, semi-uprig ht sleep position, antihistam zane at HS, limited course of nasal sympathomi metics and/or cough syrups, and nasal saline rinses with soft squeeze bottle or Neti pot. Return for fevers > 101 for 3 days, worsening sinus pain, or failure to resolve in 2-4 weeks. Sinusitis 81977311 J32.9 [id number] DEVENDRA Roque, [facility], [address] [place] [address] 05/29/2016 13:25:41 05/29/2016 14:23:40 Adult health examination 655496026 Z00.00 see Risk Assessment and Lifestyle Change Counseling section above Counseling 949177073 Z71 .9 Acute uppe r respiratory infection 20422446 J06.9 Educated patient that URI is a viral illness of the upper airways. Recommende d symptomati c treatments including NSAIDS, semi-uprig ht sleep position, antihistam zane at HS, limited course of nasal sympathomi metics and/or cough syrups, and nasal saline rinses with soft squeeze bottle or Neti pot. Return for fevers > 101 for 3 days, worsening sinus pain, or failure to resolve in 2-4 weeks. Postmenopausal state 764 02752 Z78.0 Enc calcium 1500mg via diet and supplement , vit D 1000IU, daily weight bearing exercise. [id number] DEVENDRA Roque, [facility], [address] [place] [address] 02/03/2017 14:14:47 02/03/2017 14:55:59 Allergic rhinitis 83809501 J30.9 Will treat with Flonase as directed. Humidity, fluids, rest. RTC prn sx persist or increase. Right lowe r quadrant pain 583377375 R10.31 not present today - ?gas, muscle strain. Pt will report recurrent or persistent episodes [id number] DEVENDRA Roque, [facility], [address] [place] [address] 04/09/2017 10:18:48 04/09/2017 11:03:18 Impacted cerumen 14496005 H61.21 resolved with lavage - suggest weekly Debrox [id number] DEVENDRA Roque, [facility], [address] [place] [address] 07/02/2017 14:07:40 07/02/2017 14:56:11 Adult health examination 520884510 Z00.00 see Risk Assessment and Lifestyle Change Counseling section above Counseling 072069340 Z71 .9 Depression screening 171 299901 Z13.89 depression screening tool administer ed, entered into emr, scored and discussed, time greater than 7.5 minutes Posterior rhinorrhea 758 83461 R09.82 [id number] Ho Manning MD FP, [facility], [address] [place] [address] 07/28/2017 16:10:14 07/28/2017 17:16:54 Pre-surgery evaluation 230324660 Z01.818 CLEARED FOR SURGERY Cataract 734915823 H26.9 [id number] DEVENDRA Roque, [facility], [address] [place] [address] 03/25/2018 14:15:31 03/25/2018 14:47:22 Cough 23185962 R05 med as directed, probiotics , sx care - rtc prn Pain of le ft hip joint 3051137104 43369 M25.015 [id number] DEVENDRA Roque, [facility], [address] [place] [address] 07/29/2018 14:22:29 07/29/2018 15:16:17 Adult health examination 808899348 Z00.00 see Risk Assessment and Lifestyle Change Counseling section above Counseling 734954127 Z71 .9 Depression screening 171 385046 Z13.89 depression screening tool administer ed, entered into emr, scored and discussed, time greater than 7.5 minutes Insomnia 123823628 G47.0 0 trial of lorazepam which patient has at home - stress mgmt -f/u prn [id number] DEVENDRA Roque, [facility], [address] [place] [address] 11/30/2018 10:02:52 11/30/2018 10:22:50 Cough 10272590 R05 cont mucinex, rtc prn Otitis media 34910787 H6 6.92 med as directed, probiotics , sx care - rtc prn [id number] MD NICOLE Rivera, [facility], [address] [place] [address] 12/12/2018 10:47:50 12/12/2018 11:21:42 Cough 71491017 R05 [id number] Lucila Renteria NP FP, [facility], [address] [place] [address] 04/11/2019 10:50:43 04/11/2019 17:21:36 Loose stool 901621827 R19.5 will check stools and labs, suggest fiber supplement , immodium sparingly. RTC prn Pain of sh oulder region 50545417 M25.519 Menopausal syndrome 1237 92762 N95.9 will send Rx for bioidentic al hormones. Advised pt re potential risks -pt aware and chooses to cont. [id number] Lucila Renteria NP FP, [facility], [address] [place] [address] 07/05/2019 13:34:59 07/06/2019 08:09:10 Urinary tract infectious disease 32428459 N39.0 Patient instructed to push fluids, to follow up for persistent or worsening symptoms or fever or back pain. [id number] Ho Manning MD , [facility], [address] [place] [address] 12/29/2019 10:46:32 01/01/2020 11:30:39 Diarrhea 13863261 R19.7 flare in last 3 days but pt has had GI in past yr and had a hx ab use q 4 months for dental visits- cdiff test was inadequate in 04/17 f/u with PCP if not improving Gastroenteritis 71893024 K52.9 loos stools- r/o infection [id number] Lucila Renteria NP , [facility], [address] [place] [address] 01/11/2020 13:40:16 01/12/2020 10:09:44 Diarrhea 73289780 R19.7 unclear etiology = suggest stop probiotic, add Kefir, kombucha, obtain additional stool tests. Pt should call GI with persistent or increSED SX [id number] Ho Manning MD , [facility], [address] [place] [address] 08/14/2020 09:53:54 08/14/2020 10:45:54 Adult health examination 973823286 Z00.00 see Risk Assessment and Lifestyle Change Counseling section above Counseling 623243461 Z71 .9 including cardivascu lar risk reduction counseling Depression screening 171 [id number] Z13.31 depression screening tool administer ed, entered into emr, scored and discussed, time greater than 7.5 minutes Screening for alcohol abuse [id number] Z13.39 Screening for osteoporosis 471241185 Z13.089 [id number] Remedios Osman MD , [facility], [address] [place] [address] 10/10/2020 10:46:31 10/10/2020 11:13:08 Screening for disorder [id number] Z11.59 Neuropathy 128594770 G62 .9 Lets check some basic labs then have you back to review. Your exam is completely normal today. [id number] Remedios Osman MD , [facility], [address] [place] [address] 10/17/2020 10:46:23 10/17/2020 11:17:26 Polyneuropathy 87028610 G62.9 I recommend nerve testing. Your B12 was normal, but on the low side so please start Vit B12 daily. Discussed attending to good foot care. We will have you see neurology as well [id number] Ho Manning MD FP, [facility], [address] [place] [address] 09/04/2021 09:01:23 09/04/2021 10:00:03 Adult health examination [id number] Z00.00 see Risk Assessment and Lifestyle Change Counseling section above Counseling [id number] Z71 .9 including cardiovasc ular risk reduction counseling Depression screening 171 Z13.31 depression screening tool administer ed, entered into emr, scored and discussed, time greater than 7.5 minutes Screening for alcohol abuse 486625182 Z13.39 Neuropathy 388487812 G62 .9 Active or passive immunization 594458054 Z23 [id number] Ho Manning MD , [facility], [address] [place] [address] 09/09/2022 10:12:42 09/09/2022 10:56:14 Adult health examination 065294380 Z00.00 see Risk Assessment and Lifestyle Change Counseling section above Depression screening 171 869779 Z13.31 depression screening tool administer ed Screening for alcohol abuse 917730252 Z13.39 Alcohol use screening tool administer ed Spinal tex nosis in cervical region 29963821 M48.02 has f/u with neurosurg. Dr Parekh. [id number] Liza Avila MD , [facility], [address] [place] [address] 09/20/2023 11:04:08 09/26/2023 15:50:09 Adult health examination 318118935 Z00.00 Colonoscop y: 2019, no further colo recommende d due to ageLipids Excellent, last ckd 2018. 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 ; excellent diet, active, healthy weight Depression screening 171 742896 Z13.31 depression screening tool administer edneg Screening for alcohol abuse 442300802 Z13.39 Alcohol use screening tool administer edneg Age relate d macular degeneration 230656076 H35.[address] Carol Ann cam 6 mo Menopausal syndrome 1237 33967 N95.9 continues on HT thru [facility] ects annual MXR History of hepatitis C [id number] 9101 Z86.19 treated in Posterior rhinorrhea 758 50264 R09.82 try antihistam ine and steroid nasal spray Bilateral hearing loss 57645101 H91.93 has hearing aids Postmenopa usal osteopenia 945967066 M85.80 last DEXA 2019 T score -2.2discus sed repeating, prefers not to, not interested in medsmay reconsider some day, discussed pros and cons Counseled by member of primary health care team [id number] Z71.9 Today we discussed ways to reduce your 10-year cardiovasc ular disease risk. Things that decrease risk for cardiovasc ular events include eating a diet high in fiber (fruits and vegetables ) and low in simple carbohydra jeffery (bread, rice, pasta, alcohol, potatoes), decreasing processed foods, limiting juice and alcohol, limiting saturated fats (butter, ice cream, and cheeses), and adding regular daily activity. Having blood pressure that is <130/80. Having well controlled cholestero l (LDL and triglyceri aurora) by eating a healthy diet and taking medication s when necessary. Managing daily stress with meditation or yoga. You do not need to take daily aspirin. [id number] Ho Manning MD , [facility], [address] [place] [address] 09/29/2023 09:33:23 09/29/2023 12:29:43 Allergic conjunctivitis of bilateral eyes [id number] 79304 H10.13 Seasonal allergies Start azelastine drops Dysfunctio n of eustachian tube 66547668 H69.90 Suspect effusionCo unseled to continue Flonase, start using nasal irrigation , avoid [place] decongesta ntsCounsel ed that in time this will resolve RTC if no improvemen t in next month or new sxs Health Concerns Section Related Observation LastModified by Organization Detai ls LastModified Time None Recorded Concern Status LastModified by Organization Details LastModified Time None Recorded Advance Directives Directive Y: [phone] Payers Encounter Date Sequence Insurance Name Policy Number Policy John Covered Member ID John Member ID Guarantor Name 10/17/2020 2 [place] [id number] Maria Luisa Espino [id number] Maria Luisa Espino 10/17/2020 1 [place] Maria Luisa Espino [id number] Maria Luisa Espino 09/04/2021 2 [place] [id number] Maria Luisa Espino [id number] Maria Luisa Espino 09/04/2021 1 [place] Maria Luisa Espino [id number] Maria Luisa Espino 09/09/2022 2 [place] [id number] Maria Luisa Espino [id number] Maria Luisa Espino 09/09/2022 1 [place] Maria Luisa Espino [id number] Maria Luisa Espino 09/20/2023 2 [place] [id number] Maria Luisa Espino [id number] Maria Luisa Espino 09/20/2023 1 [place] Maria Luisa Espino [id number] Maria Luisa Espino 09/29/2023 2 [place] [id number] Maria Lusia Espino [id number] Maria Luisa Espino 09/29/2023 1 [place] [employer] [place] Maria Luisa Espino [id number] Maria Luisa Espino Notes Date Note Type Note Provider Name and Address Organization Details Recorded Time 1 text/html 10/17/20 Mary Beth has symptoms of altered sensation lower extremities from mid-bridges to feet. Feels like wrapped in paper . Not painful. constant. Unchanged since last visit 10/10/20 From mid calf to feet, bilateral, has odd sensation. Like its wrapped in paper x 2 weeks or more. Not painful, more weird feeling. Like blood rushing. Has had sciatica, this feels different. No fever, chills, fatigue, otherwise feels well. Covid vaccine second shot August 27 Modern. No new meds. No weakness. No back pain. No bladder/bowel problems. Remedios Osman MD [address] [place] [address], [phone], [facility] 10/17/2020 11:21:35 2 text/html Physical Exam/FemaleReported bypatient.PHAPatient is here for a Wellness Visit. She describes her health status as good. Patient's health is the same as last year.Risk Assessment and Lifestyle Change Counseling 65+ (Medicare)Reported bypatient.Coronary Artery Disease Risk Assessment:Family History of Coronary Artery Disease; No personal history of diabetes; No history of peripheral vascular disease, AAA, or carotid disease; No personal history of coronary artery disease; Craig 10 year risk Breast Cancer Risk Assessment:Family history of breast cancer one first degree relative; No history of breast cancer or dcis Colon Cancer Risk Assessment:No family history of pre cancerous colon polyps or cancer Lung Cancer Risk Assessment:Never smoked; No asbestos exposure Fracture Risk Assessment:No unexplained fracture; No use of corticosteroids; No anti-seizure medication; Normal bone density; Has adequate calcium intake; Taking Vitamin D supplement; No chronic use of proton pump inhibitors Cognitive/Behavioral Risk Assessment:No personal history of mental illness; No family history of mental illness Safety Risk Assessment:No grab bars in bathroom; Has rails on steps; No falls; No evidence of abuse/neglect; Do you feel safe in your current relationship?YES; Have you ever been a victim of physical/emotional/sexu al abuse?NO Functional Status:Patient has trouble hearing the television or radio when others do not.(hearing aids);Patient has to strain or struggle to hear/understand conversations.(hearing aids); Patient does not need help with preparing meals, transportation, shopping, taking medicine, managing finances, or other activities of daily living.;Patient has visual loss that interfers with daily activities(macular degeneration); Does not live alone; Patient was not unsteady and did not take longer than 30 seconds during the timed get up and go test.; Patient reports no falls in the past 6 months. Diet:Counseled about the importance of maintaining a positive calcium balance and taking 1000 iu Vitamin D daily. Exercise counseling:Discussed the importance of weight bearing exercise Safety:Counseled about protecting skin from the sun and lowering the risk of skin cancer neuropathy persists lower legs and feettook med for Hep C -undetectable -sx persistdid have low normal B12 last yr and not advised to take supplement = will recheck todayNov -Apr in [facility] with BF moderna 3rd dose [facility] - had both shingrix -last year Lucila Renteria NP [address] [place] [address], [phone], [facility] 09/04/2021 15:43:42 3 text/html Physical Exam/FemaleReported bypatient.PHAPatient is here for a Wellness Visit. She describes her health status as good. Patient's health is the same as last year.Risk Assessment and Lifestyle Change Counseling 65+ (Medicare)Reported bypatient.Coronary Artery Disease Risk Assessment:Family History of Coronary Artery Disease; No personal history of diabetes; No history of peripheral vascular disease, AAA, or carotid disease; No personal history of coronary artery disease; Craig 10 year risk Breast Cancer Risk Assessment:Family history of breast cancer one first degree relative; No history of breast cancer or dcis Colon Cancer Risk Assessment:No family history of pre cancerous colon polyps or cancer Lung Cancer Risk Assessment:Never smoked; No asbestos exposure Fracture Risk Assessment:No unexplained fracture; No use of corticosteroids; No anti-seizure medication; Normal bone density; Has adequate calcium intake; Taking Vitamin D supplement; No chronic use of proton pump inhibitors Cognitive/Behavioral Risk Assessment:No personal history of mental illness; No family history of mental illness Safety Risk Assessment:Has grab bars in bathroom; Has rails on steps; No falls; No evidence of abuse/neglect; Do you feel safe in your current relationship?YES; Have you ever been a victim of physical/emotional/sexu al abuse?NO Functional Status:Patient has trouble hearing the television or radio when others do not.(hearing aids);Patient has to strain or struggle to hear/understand conversations.(hearing aids); Patient does not need help with preparing meals, transportation, shopping, taking medicine, managing finances, or other activities of daily living.;Patient has visual loss that interfers with daily activities(macular degeneration); Does not live alone; Patient was not unsteady and did not take longer than 30 seconds during the timed get up and go test.; Patient reports no falls in the past 6 months. Diet:Counseled about the importance of maintaining a positive calcium balance and taking 1000 iu Vitamin D daily. Exercise counseling:Discussed the importance of weight bearing exercise Safety:Counseled about protecting skin from the sun and lowering the risk of skin cancer Patient is here today for Medicare Return Wellness cerv MRI per neuro - some stenosis = narrowing between C6-7consult with Dr [facility] more neededsees Yasmine Jay for [employer] REPRESENTATIVE care previous encounter-neuropathy persists lower legs and feettook med for Hep C -undetectable -sx persistdid have low normal B12 last yr and not advised to take supplement = will recheck todayNov -Apr in [facility] with BFmoderna 3rd dose -[facility] - had both shingrix -last year Lucila Renteria NP [address] [place] [address], [phone], [facility] 09/09/2022 13:21:04 4 text/html Physical Exam/FemaleReported bypatient.PHAPatient is here for a Wellness Visit. She describes her health status as good. Patient's health is the same as last year.Risk Assessment and Lifestyle Change Counseling (Medicare)Reported bypatient.Coronary Artery Disease Risk Assessment:Family History of Coronary Artery Disease; No personal history of diabetes; No history of peripheral vascular disease, AAA, or carotid disease; No personal history of coronary artery disease; Craig 10 year risk Breast Cancer Risk Assessment:Family history of breast cancer one first degree relative; No history of breast cancer or dcis Colon Cancer Risk Assessment:No family history of pre cancerous colon polyps or cancer Lung Cancer Risk Assessment:Never smoked; No asbestos exposure Fracture Risk Assessment:No unexplained fracture; No use of corticosteroids; No anti-seizure medication; Normal bone density; Has adequate calcium intake; Taking Vitamin D supplement; No chronic use of proton pump inhibitors Cognitive/Behavioral Risk Assessment:No personal history of mental illness; No family history of mental illness Safety Risk Assessment:Has grab bars in bathroom; Has rails on steps; No falls; No evidence of abuse/neglect; Do you feel safe in your current relationship?YES; Have you ever been a victim of physical/emotional/sexu al abuse?NO Functional Status:Patient has trouble hearing the television or radio when others do not.(hearing aids);Patient has to strain or struggle to hear/understand conversations.(hearing aids); Patient does not need help with preparing meals, transportation, shopping, taking medicine, managing finances, or other activities of daily living.;Patient has visual loss that interfers with daily activities(macular degeneration); Does not live alone; Patient was not unsteady and did not take longer than 30 seconds during the timed get up and go test.; Patient reports no falls in the past 6 months. Diet:Counseled about the importance of maintaining a positive calcium balance and taking 1000 iu Vitamin D daily. Exercise counseling:Discussed the importance of weight bearing exercise Safety:Counseled about protecting skin from the sun and lowering the risk of skin cancer 09/20/23- Pt here for a Wellness visit. Complains of persistant post nasal drip, unsure if caused by allergies. 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 Hx Hep C:txd with [facility] per [id number] - had both [facility]rix -last year Chaya Owens PA-C [address] [place], [phone], [facility] 09/20/2023 12:25:06 4 text/html Left ear blockedHearing decreased A couple days ago started to feel like left ear blockedFeels like on planeMuffled hearingPressureNo vertigo, n/v, painHad very mild discomfort in left ear yesterdayWhole head feels stuffed Lots of allergiesCracklingHas been using Flonase for the last two days MUKUND Dougherty, [employer]ILRO[employer] EMERG[employer] SERVICES MANAGER-[employer] [address] [place], [phone], [facility] 09/29/2023 10:32:15 OBGyn Episode No OBEpisode recorded.
[2024-10-09 10:51] VITALS: BMI 19.8
[2024-10-09 11:17] VITALS: BMI 19.8
--- NOTE | 2024-10-13 12:06 | HO.ANESPROP2 ---
Documented by User: Lisa Gill NP 10/13/24 12:07 HPI - Anesthesia Eval Consult details Narrative: 79yo F for Left Cataract Extraction IOL Insertion PMFSH Past Medical History Medical History Colon polyp Arthritis Surgical History Surgical History Hx of right cataract extraction Hx of fusion of cervical spine H/O colonoscopy History of total right hip replacement Hx of tonsillectomy Social History Social History Are you a primary care transition mgr to a significant other at home: No Do you presently have visiting nurse or other home services: No Patient Tobacco Use Status: Former Tobacco user Tobacco use type: Cigarette Use of substances other than those prescribed or required for medical reasons: No Have you been hit, kicked, punched, or otherwise hurt by someone within the past year? If so, by whom?: No Spiritual Healthcare Practices: no Tenriism Healthcare Practices: no Cultural Healthcare Practices: no Are you DNR?: Yes Advance Directives on File: No FDLMP: n/a Poor oral hygiene: No Meds Allergies Allergy/AdvReac Type Severity Reaction Status Date / Time epinephrine (EPINEPHRINE) Allergy Intermediate TACHYCARDIA Verified 10/09/24 10:54 ,PALPITATIO NS oxycodone Allergy Intermediate Vomiting Verified 10/09/24 10:54 Home Medications ?Medication ?Instructions ?Recorded ?Confirmed ?Last Taken ?Type fluticasone propionate 50 1 spray intranasal BID 10/09/24 10/09/24 Unknown History mcg/actuation nasal spray,suspension vit C 250 mg-vit E 90 mg-zinc 40 1 tab PO BID 10/09/24 10/09/24 Unknown History mg-copper 1 [id number] capsule (PreserVision AREDS-2) Exam Height,Weight and Vital Signs: Height 5 ft 4.96 in Weight 54 kg Assessment and Plan Assessment Anesthesia Assessment: Chart Reviewed Documented by User: Trang Pimentel MD 10/16/24 10:11 PMF Past Medical History Medical History Colon polyp Arthritis Family History Family history of problems with anesthesia: No Surgical History Surgical History Hx of right cataract extraction Hx of fusion of cervical spine H/O colonoscopy History of total right hip replacement Hx of tonsillectomy History of Problems with Anesthesia: No Social History Social History Are you a primary care transition mgr to a significant other at home: No Do you presently have visiting nurse or other home services: No Patient Tobacco Use Status: Former Tobacco user Tobacco use type: Cigarette Use of substances other than those prescribed or required for medical reasons: No Have you been hit, kicked, punched, or otherwise hurt by someone within the past year? If so, by whom?: No Spiritual Healthcare Practices: no Tenriism Healthcare Practices: no Cultural Healthcare Practices: no Are you DNR?: Yes Advance Directives on File: No FDLMP: n/a Poor oral hygiene: No Meds Allergies Allergy/AdvReac Type Severity Reaction Status Date / Time epinephrine (EPINEPHRINE) Allergy Intermediate TACHYCARDIA Verified 10/09/24 10:54 ,PALPITATIO NS oxycodone Allergy Intermediate Vomiting Verified 10/09/24 10:54 Home Medications ?Medication ?Instructions ?Recorded ?Confirmed ?Last Taken ?Type fluticasone propionate 50 1 spray intranasal BID 10/09/24 10/09/24 Unknown History mcg/actuation nasal spray,suspension vit C 250 mg-vit E 90 mg-zinc 40 1 tab PO BID 10/09/24 10/09/24 Unknown History mg-copper 1 [id number] capsule (PreserVision AREDS-2) Exam Airway Mallampati Class: II TM Dist: >3cm Neck ROM: Limited Heart: rrr Lungs: cta Assessment and Plan Assessment Anesthesia Assessment: Anesthesia Plan Discussed Final Anesthetic Review Family History of Problems with Anesthesia: No History of Problems with Anesthesia: No NPO: Yes ASA Class: II Final Preanesthetic Review: No Changes in Pt Med Stat, Meds/Allgs Chart Reviewed, Consent Obtained/Reviewed and Anes Risks/Benef Reviewed Patient Risk: Low Procedure Risk: Low Anesthetic Plan Anesthetic Plan: MAC: Disposition: Standard PACU
[2024-10-16 10:33] VITALS: BP 179/86; PULSE 68; RESP 16; TEMP 36.3; O2SAT 97
[2024-10-16] MEDS: Tetracaine HCl/PF 0.5% Oph Sol 4 ML DROPS 1 DROP EYE-LEFT (10:37)
[2024-10-16] MEDS: Cyclopentolate 1 % Ophth Sol 2 ML DRPBTL 1 DROP EYE-LEFT ×3 (10:38→10:44)
[2024-10-16] MEDS: Tropicamide 1 % Ophth Sol 3 ML BTL 1 DROP EYE-LEFT ×3 (10:39→10:45)
[2024-10-16] MEDS: Ketorolac Tromethamine 0.5% Op 5 ML DROPS 1 DROP EYE-LEFT ×3 (10:39→10:46)
[2024-10-16] MEDS: Phenylephrine HCL 2.5% Oph SoL 2 ML BOTTLE 1 DROP EYE-LEFT ×3 (10:40→10:49)
--- NOTE | 2024-10-16 10:46 | HO.ANESPROP2 ---
[facility] Past Medical History Medical History Colon polyp Arthritis Family History Family history of problems with anesthesia: No Surgical History Surgical History Hx of right cataract extraction Hx of fusion of cervical spine H/O colonoscopy History of total right hip replacement Hx of tonsillectomy History of Problems with Anesthesia: No Social History Social History Are you a primary day care attendant to a significant other at home: No Do you presently have visiting nurse or other home services: No Patient Tobacco Use Status: Former Tobacco user Tobacco use type: Cigarette Use of substances other than those prescribed or required for medical reasons: No Have you been hit, kicked, punched, or otherwise hurt by someone within the past year? If so, by whom?: No Spiritual Healthcare Practices: no Rastafarian Healthcare Practices: no Cultural Healthcare Practices: no Are you DNR?: Yes Advance Directives on File: No FDLMP: n/a Poor oral hygiene: No Meds Allergies Allergy/AdvReac Type Severity Reaction Status Date / Time epinephrine (EPINEPHRINE) Allergy Intermediate TACHYCARDIA Verified 10/09/24 10:54 ,PALPITATIO NS oxycodone Allergy Intermediate Vomiting Verified 10/09/24 10:54 Active Medications: Current Medications Lactated Ringer's (Lr) 500 mls @ 50 mls/hr IV .Q10H PEDRO Stop: 10/16/24 20:14 Naloxone HCl (Naloxone Hcl 0.4 Mg/Ml Vial) 0.04 mg IVPUSH Q5M PRN PRN Reason: Excessive sedation or RR < 8 Povidone Iodine (Povidone Iodine 5 % Ophth Soln 30 Ml Bottle) 1 appl EYE-LEFT PREOP PRN PRN Reason: Pre-Op Surgical Implant Prophy Home Medications ?Medication ?Instructions ?Recorded ?Confirmed ?Last Taken ?Type fluticasone propionate 50 1 spray intranasal BID 10/09/24 10/09/24 Unknown History mcg/actuation nasal spray,suspension vit C 250 mg-vit E 90 mg-zinc 40 1 tab PO BID 10/09/24 10/09/24 Unknown History mg-copper 1 [id number] capsule (PreserVision AREDS-2) Exam Height,Weight and Vital Signs: Height 5 ft 4.96 in Weight 54 kg Last Vital Signs Temp 97.4 F 10/16/24 10:33 Pulse 68 10/16/24 10:33 Resp 16 10/16/24 10:33 BP 179/86 H 10/16/24 10:33 Pulse Ox 97 10/16/24 10:33 O2 Del Method Room Air 10/16/24 10:33 Airway Mallampati Class: II TM Dist: >3cm Neck ROM: Full Heart: rrr Lungs: cta Assessment and Plan Assessment Anesthesia Assessment: Anesthesia Plan Discussed and Chart Reviewed Final Anesthetic Review Family History of Problems with Anesthesia: No History of Problems with Anesthesia: No NPO: Yes ASA Class: II Final Preanesthetic Review: No Changes in Pt Med Stat, Meds/Allgs Chart Reviewed and Consent Obtained/Reviewed Patient Risk: Low Procedure Risk: Low Anesthetic Plan Anesthetic Plan: MAC: Disposition: Standard PACU
[2024-10-16] MEDS: Lactated Ringers 500 ML 50 ML IV (10:50)
--- NOTE | 2024-10-16 11:17 | MHC.SHP ---
Pre-Procedural Eval Section A - 24 Hr Update-Section A only Date of Service: 10/16/24 The patient is an INPATIENT: No Changes since office visit: No Cold of Flu in the past 2 weeks, No New Medical Problems, No Changes in Medication and No Patient answered all questions The patient has been examined within 24 hours of the surgical procedure. The History & Physical has been completed within 30 days and I have reviewed it.: Yes Section B - Complete if H&P > 30 days Chief Complaint: Age-related nuclear cataract, left eye Allergies: Allergies Allergy/AdvReac Type Severity Reaction Status Date / Time epinephrine (EPINEPHRINE) Allergy Intermediate TACHYCARDIA Verified 10/09/24 10:54 ,PALPITATIO NS oxycodone Allergy Intermediate Vomiting Verified 10/09/24 10:54 Plan Diagnosis/Plan: Unchanged I have reviewed the history and physical and performed a pertinent physical examination on my patient. No changes have occurred unless specified. Time Spent With Patient Time: Total time managing care of this patient today ____ minutes.
--- NOTE | 2024-10-16 11:18 | HO.PNOPHT ---
Ophthalmology Procedure Procedure Date of Service: 10/16/24 Ophthalmology Viscoelastic: Healon Duet Dual Pack Pro Ophthalmology Lenses: IOL Acrysof MP - [id number] (20) Procedure Notes: PREOPERATIVE DIAGNOSIS: Decreased visual acuity left eye secondary to cataract POSTOPERATIVE DIAGNOSIS: Same PROCEDURE: Left cataract extraction with intraocular lens insertion SURGEON: Cristobal Garsia M.D. ANESTHESIA: Topical/MAC ESTIMATED BLOOD LOSS: None COMPLICATIONS: None After obtaining informed consent, the patient was brought to the operation room suite and placed in the supine position. After adequate sedation per anesthesia, topical drops of Tetracaine were given to the left eye. The eye was then prepped and draped in the usual sterile fashion. The operating room microscope was then positioned over the operative eye and a lid speculum placed. A paracentesis was created. Viscoelastic was then instilled into the anterior chamber. A three plane incision was then created temporally, utilizing a 2.85 mm keratome. Capsulotomy forceps were then utilized to create a circular tear capsulotomy. Hydrodissection and hydrodelineation were carried out until adequate mobilization of the nucleus occurred. Phacoemulsification was then utilized to remove the dense central nucleus followed by removal of the cortical material utilizing the automated aspiration irrigation unit. Viscoat elastic was instilled into the posterior capsular bag followed by placement of a posterior chamber intraocular lens without difficulty. The residual Viscoat elastic was then removed utilizing the automated IA machine. The wound was check and found to be watertight. The patient tolerated the procedure well and the lid speculum was removed. Intracameral injection of Vigamox 0.1 mL followed by a subtenon injection of Kenalog-40 0.2 mL were administered. The patient will be seen in the a.m.
[2024-10-16 11:44] VITALS: BP 158/83; PULSE 85; RESP 16; TEMP 36.6; O2SAT 98
== END 2024-10-16 11:52 | disposition home or self-care (01) ==
PROVIDERS: Visit Provider Ophthalmology
PROC: (CPT 66985; principal; 2024-10-16 12:00)
DX: H25.12 Age-related nuclear cataract, left eye (principal); H54.7 Unspecified visual loss; Z83.511 Family history of glaucoma; Z83.518 Family history of other specified eye disorder; Z79.899 Other long term (current) drug therapy; Z88.8 Allergy status to other drugs, medicaments and biological substances; Z98.890 Other specified postprocedural states; Z87.891 Personal history of nicotine dependence
CPT/HCPCS: 66984; J2250; J3301; V2630